=== PATIENT | male | born 1965 | race Caucasian/White ===

== ENCOUNTER 2020-11-19 22:13 | Emergency (ER) | payer MEDICARE, OTHER ==
[~2020-11-19] VITALS: Ht 177.8 cm; Wt 68.0 kg
[2020-11-19 22:41] LABS: BASOPHILS % (AUTO) 0.3 % (0.0-2.0); EOSINOPHILS % (AUTO) 1.2 % (0.0-6.0); HEMATOCRIT 38 % (39-51); HEMOGLOBIN 12.9 g/dL (13.5-17.5); LYMPHOCYTES # (AUTO) 2.2 /CMM (0.8-4.8); LYMPHOCYTES % (AUTO) 32.2 % (20.0-44.0); MEAN CORPUSCULAR HGB CONC 34 g/dl (31.0-36.0); MEAN CORPUSCULAR VOLUME 91 fL (80-96); MONOCYTES # (AUTO) 0.5 /CMM (0.1-1.30); MONOCYTES % (AUTO) 8.1 % (2.0-12.0); NEUTROPHILS # (AUTO) 3.9 /CMM (1.8-8.9); NEUTROPHILS % (AUTO) 58.2 % (43.0-81.0); PLATELET COUNT (AUTO) 295 /CMM (150-450); RED BLOOD CELL COUNT(AUTO) 4.18 MIL/uL (4.5-6.0); WHITE BLOOD COUNT (AUTO) 6.7 K/uL (4.3-11.0)
[2020-11-19 22:49] LABS: CALCIUM, SERUM 8.8 mg/dL (8.5-10.1); CREATININE 0.9 mg/dL (0.6-1.3); POTASSIUM 3.7 mmol/L (3.5-5.1)
[2020-11-19 22:55] LABS: ALBUMIN 3.7 g/dL (3.4-5.0); BILIRUBIN,DIRECT 0.1 mg/dL (0.0-0.2); BILIRUBIN,TOTAL 0.5 mg/dL (0.2-1.0); TOTAL PROTEIN, SERUM 7.4 g/dL (6.4-8.2)
--- NOTE | 2020-11-19 23:43 | NUR ---
urine collected and sent to lab
[2020-11-19 23:58] LABS: BILIRUBIN,URINE Negative (NEGATIVE); COLOR,URINE YELLOW (YELLOW); LEUKOCYTE ESTERASE ,URINE Negative (NEGATIVE); NITRITE, URINE Negative (NEGATIVE); PROTEIN,URINE Negative (NEGATIVE); UGLUCOSE Negative (NEGATIVE); UROBILINOGEN,URINE 0.2 EU/dL (0.2)
--- NOTE | 2020-11-20 00:09 | NUR ---
[facility] ETA 45 MINUTES
[2020-11-20 00:29] LABS: WBC,URINE 0-2 /HPF (0-3)
[2020-11-20 00:30] LABS: BACTERIA,URINE None seen /HPF (None Seen); SQUAMOUS EPITHELIAL CELL,UR Moderate /HPF (None Seen)
--- NOTE | 2020-11-20 01:05 | NUR ---
REPORT GIVEN TO MOMO GAGNON AT [facility]
--- NOTE | 2020-11-20 01:07 | NUR ---
[facility] IN FACILITY, REPORT GIVEN, PT TO BE TRANSPORTED BACK TO [facility]. PT VSS. NOT ACUTE DISTRESS, -SOB.
[2020-11-20] MEDS ORDERED: ACETAMINOPHEN ES 500 MG TABLET ONE (01:16)
[2020-11-20] MEDS ORDERED: ACETAMINOPHEN ES 500 MG TABLET PO ONE (01:30)
[2020-11-20 01:59] VITALS: BP 134/70
== END 2020-11-20 01:30 ==
LOC: ER 22:16
DX: G40.909 Epilepsy, unspecified, not intractable, without status epilepticus (principal); I10 Essential (primary) hypertension; J44.9 Chronic obstructive pulmonary disease, unspecified; F41.9 Anxiety disorder, unspecified; F25.9 Schizoaffective disorder, unspecified; Z95.818 Presence of other cardiac implants and grafts
CPT/HCPCS: 36415; 70450-TC; 71045-TC; 80048-TC; 80076-TC; 81001; 82962-TC; 85025-TC

== ENCOUNTER 2021-05-06 17:15 | Inpatient (IN) | payer MEDICARE, OTHER ==
[~2021-05-06] VITALS: Ht 167.6 cm; Wt 52.6 kg
[2021-05-06 18:07] LABS: BASOPHILS % (AUTO) 0.3 % (0.0-2.0); EOSINOPHILS % (AUTO) 1.8 % (0.0-6.0); HEMATOCRIT 34 % (39-51); HEMOGLOBIN 11.1 g/dL (13.5-17.5); LYMPHOCYTES # (AUTO) 2.1 K/uL (0.8-4.8); LYMPHOCYTES % (AUTO) 49.1 % (20.0-44.0); MEAN CORPUSCULAR HGB CONC 33 g/dl (31.0-36.0); MEAN CORPUSCULAR VOLUME 91 fL (80-96); MONOCYTES # (AUTO) 0.3 K/uL (0.1-1.30); MONOCYTES % (AUTO) 7.6 % (2.0-12.0); NEUTROPHILS # (AUTO) 1.7 K/uL (1.8-8.9); NEUTROPHILS % (AUTO) 41.2 % (43.0-81.0); PLATELET COUNT (AUTO) 342 K/uL (150-450); RED BLOOD CELL COUNT(AUTO) 3.72 MIL/uL (4.5-6.0); WHITE BLOOD COUNT (AUTO) 4.2 K/uL (4.3-11.0)
[2021-05-06 18:15] LABS: CALCIUM, SERUM 8.7 mg/dL (8.5-10.1); CREATININE 0.7 mg/dL (0.6-1.3); POTASSIUM 4.4 mmol/L (3.5-5.1)
--- NOTE | 2021-05-06 18:15 | NUR ---
COVID SPECIMEN COLLECTED AND SENT TO THE LAB
[2021-05-06 18:21] LABS: BILIRUBIN,TOTAL 0.1 mg/dL (0.2-1.0); TOTAL PROTEIN, SERUM 6.7 g/dL (6.4-8.2)
[2021-05-06] MEDS ORDERED: MAGNESIUM HYDROXIDE 30 ML UDC PO PRN (18:30)
[2021-05-06] MEDS ORDERED: Z GUARD REMEDY 2 OZ OINT TP PRN (18:30)
[2021-05-06] MEDS ORDERED: ONDANSETRON HCL/PF 4 MG/2 ML VIAL IVP PRN (18:30)
[2021-05-06] MEDS ORDERED: ZOLPIDEM TARTRATE 5 MG TABLET PO PRN (18:30)
[2021-05-06] MEDS ORDERED: MAG HYDROX/AL HYDROX/SIMETH 30 ML UDC PO PRN (18:30)
--- NOTE | 2021-05-06 19:12 | NUR ---
COVID PCR DONE AND SENT
--- NOTE | 2021-05-06 19:16 | NUR ---
PCR SPECIMEN COLLECTED AND SENT TO THE LAB
[2021-05-06 20:14] LABS: BILIRUBIN,URINE Negative (NEGATIVE); COLOR,URINE YELLOW (YELLOW); LEUKOCYTE ESTERASE ,URINE Small (NEGATIVE); NITRITE, URINE Negative (NEGATIVE); PROTEIN,URINE Negative (NEGATIVE); UGLUCOSE Negative (NEGATIVE); UROBILINOGEN,URINE 0.2 EU/dL (0.2)
[2021-05-06 20:23] LABS: BACTERIA,URINE 1+ /HPF (None Seen); SQUAMOUS EPITHELIAL CELL,UR Few /HPF (None Seen)
--- NOTE | 2021-05-06 20:43 | NUR ---
REPORT GIVEN TO RN
--- NOTE | 2021-05-06 21:21 | NUR ---
PT TRANSPORTED TO BILL WITHOUT INCIDENT.
[2021-05-06] MEDS: IV D5/0.45 NACL 1,000 ML IV PRN (21:31)
--- NOTE | 2021-05-06 21:47 | NUR ---
RN Notes called lab to confirm that they have the specimen for covid PCR c/o [place]
[2021-05-06 22:00] VITALS: BP 125/69
--- NOTE | 2021-05-07 02:45 | NUR ---
RN notes Admitted a 55 year old male from ER via stetcher accompanied by 1 staff with diagnosis of failure to thrive and with history of seizure, HTN, anxiety, schizoaffective disorder, spinal stenosis. No distress noted. Breathing even and unlabored. On room air well tolerated. Alert and resposive with poor concentration. Able to communicate needs. Noted with sacral wound. Cleanse with NS and covered with dry dressing. NPO. Vital signs wnl. Kept clean and dry. Will endorse to next shift for continuity of care.
[2021-05-07 04:00] VITALS: BP 118/67
[2021-05-07 06:38] LABS: BASOPHILS % (AUTO) 0.4 % (0.0-2.0); EOSINOPHILS % (AUTO) 1.3 % (0.0-6.0); HEMATOCRIT 34 % (39-51); HEMOGLOBIN 11.5 g/dL (13.5-17.5); LYMPHOCYTES # (AUTO) 2.4 K/uL (0.8-4.8); LYMPHOCYTES % (AUTO) 41.4 % (20.0-44.0); MEAN CORPUSCULAR HGB CONC 34 g/dl (31.0-36.0); MEAN CORPUSCULAR VOLUME 90 fL (80-96); MONOCYTES # (AUTO) 0.3 K/uL (0.1-1.30); MONOCYTES % (AUTO) 5.4 % (2.0-12.0); NEUTROPHILS % (AUTO) 51.5 % (43.0-81.0); PLATELET COUNT (AUTO) 387 K/uL (150-450); RED BLOOD CELL COUNT(AUTO) 3.81 MIL/uL (4.5-6.0); WHITE BLOOD COUNT (AUTO) 5.7 K/uL (4.3-11.0)
[2021-05-07 07:22] LABS: ALBUMIN 3.2 g/dL (3.4-5.0); BILIRUBIN,TOTAL 0.3 mg/dL (0.2-1.0); CALCIUM, SERUM 8.7 mg/dL (8.5-10.1); CREATININE 0.7 mg/dL (0.6-1.3); MAGNESIUM 1.9 mg/dL (1.8-2.4); PHOSPHORUS 3.7 mg/dL (2.5-4.9); POTASSIUM 3.8 mmol/L (3.5-5.1); TOTAL PROTEIN, SERUM 7.1 g/dL (6.4-8.2)
[2021-05-07 08:00] VITALS: BP 129/84
[2021-05-07] MEDS: ENSURE ENLIVE CHOC 237 ML CAN PO SCH ×2 (08:00→17:28)
--- NOTE | 2021-05-07 08:00 | NUR ---
RN MORNING NOTE PT RECEIVED SITTING UP IN BED WITH HOB HIGH FOWLERS. PT IS ON RA SPO2 98% WITH NO SIGNS OF LABORED BREATHING OR RESPIRATORY DISTRESS ETC. PT IS A/OX3. PT IS NON AMBULATORY. LAC 20 IS PATENT AND INTACT WITH NO SIGNS OF INFILTRATION. BED IS LOCKED IN THE LOWEST POSITION, 3 GUARD RAILS RAISED, CALL VARGHESE WITHIN REACH, AND ALL HOSPITAL SAFETY PRECAUTIONS ARE IN PLACE. WILL CONTINUE TO MONITOR THROUGHOUT MY SHIFT.
[2021-05-07] MEDS: IV D5/0.45 NACL 1,000 ML IV PRN (08:43)
[2021-05-07] MEDS ORDERED: ACET-73 PO (09:10)
--- NOTE | 2021-05-07 09:30 | NUR ---
RN NOTES NOTIFIED SAM AVENDANO SUPER[employer]OR [employer] FOR MED RECONCILIATION
[2021-05-07] MEDS ORDERED: OLAN15TA3 PO (09:35)
[2021-05-07] MEDS ORDERED: CHOL400T11 PO (09:35)
[2021-05-07] MEDS ORDERED: GABA-532 PO (09:35)
[2021-05-07] MEDS ORDERED: DOCU100C36 PO (09:35)
[2021-05-07] MEDS ORDERED: IBUP-1953 PO (09:35)
[2021-05-07] MEDS ORDERED: ATOR40TA PO (09:35)
[2021-05-07] MEDS ORDERED: ASPI-1420 PO (09:35)
[2021-05-07] MEDS ORDERED: TRAZ-182 PO (09:35)
[2021-05-07] MEDS ORDERED: LEVE500T9 PO (09:35)
[2021-05-07] MEDS ORDERED: BENA5TAB5 PO (09:35)
--- NOTE | 2021-05-07 10:45 | NUR ---
RN NOTES PER TRISHA VERDUGO TO PUT PATIENT ON PUREED DIET WITH NECTAR THICKENED LIQUID
[2021-05-07 16:00] VITALS: BP_SYST 108; BP_SYST 147; BP_DIAS 60; BP_DIAS 99
[2021-05-07] MEDS ORDERED: ACETAMINOPHEN ES 500 MG TABLET PO PRN (16:00)
[2021-05-07] MEDS: BACLOFEN (10 MG) 10 MG TABLET PO SCH (16:30)
[2021-05-07] MEDS: OLANZAPINE 5 MG TABLET PO SCH (16:30)
[2021-05-07] MEDS: GABAPENTIN 100 MG CAPSULE PO SCH (16:30)
[2021-05-07] MEDS: TRAZODONE 50 MG TABLET PO SCH (17:56)
[2021-05-07] MEDS: ATORVASTATIN 40 MG TABLET PO SCH (17:56)
--- NOTE | 2021-05-07 18:31 | NUR ---
RN CLOSING NOTE PT IS LYING IN BED RESTING COMFORTABLY WITH HOB AT 30 DEGREES. PT IS ON RA SPO2 98% WITH NO SIGNS OF LABORED BREATHING OR RESPIRATORY DISTRESS ETC. PT IS A/OX3. PT IS NON AMBULATORY. LAC 20 IS PATENT AND INTACT WITH NO SIGNS OF INFILTRATION. PT PLACED ON PUREE DIET WITH THICKENER. POSSIBLE GI CONSULTATION 05/[address] PACK. SWALLOW EVAL 05/08. BED IS LOCKED IN THE LOWEST POSITION, 3 GUARD RAILS RAISED, CALL VARGHESE WITHIN REACH, AND ALL HOSPITAL SAFETY PRECAUTIONS ARE IN PLACE. ALL DUE MEDICATIONS GIVEN AND PATIENT REMAINED STABLE THROUGHOUT SHIFT AND ALL NEEDS WERE MET. WILL ENDORSE TO MARKET NEWS REPORTER NURSE FOR EMIL.
--- NOTE | 2021-05-07 19:00 | NUR ---
MS RN OPENING NOTE RECEIVED PT IN BED, RESTING. A/O X3. PT IS ON ROOM AIR, NO SOB OR RESPIRATORY DISTRESS NOTED, NO C/O PAIN. RESPIRATIONS EVEN AND UNLABORED, IV ACCESS NOTED IN LEFT AC G#20, INTACT, PATENT AND FLUSHINFG WELL. FALL AND SAFETY MEASURES IN PLACE AND MAINTAINED AT ALL TIMES. BED ALARM ON, BED IN LOW AND LOCKED POSITION, HOB ELEVATED TO SEMI FOWLERS POSITION, CALL LIGHT AND TABLE WITHIN REACH, SIDE RAILS UP X2. WILL CONTINUE TO MONITOR.
[2021-05-07 20:00] VITALS: BP 128/85
[2021-05-07] MEDS: LEVETIRACETAM (250 MG) 250 MG TABLET PO SCH (22:44)
[2021-05-08 04:00] VITALS: BP 119/53
[2021-05-08] MEDS: ACETAMINOPHEN 325 MG TABLET PO PRN ×2 (06:29→08:28)
--- NOTE | 2021-05-08 06:30 | NUR ---
RN CLOSING NOTE PT REMAINED STABLE THROUGHOUT SHIFT. WILL ENDORSE TO ONCOMING RN.
--- NOTE | 2021-05-08 07:31 | NUR ---
RN OPENING NOTES Patient seen comfortably lying in bed, no SOB, no apparent distress noted, respirations even and unlabored, denies any pain or discomfort at this time. Call light left within reach, safety precautions in place, brakes locked, side rails up X 2, will monitor closely for any changes.
[2021-05-08 08:00] VITALS: BP 92/66
[2021-05-08] MEDS: ENSURE ENLIVE CHOC 237 ML CAN PO SCH ×2 (08:27→17:09)
[2021-05-08] MEDS: GABAPENTIN 100 MG CAPSULE PO SCH ×2 (08:28→17:08)
[2021-05-08] MEDS: CHOLECALCIFEROL (VITAMIN D 3) 400 UNIT TABLET PO SCH (08:28)
[2021-05-08] MEDS: BACLOFEN (10 MG) 10 MG TABLET PO SCH ×2 (08:28→17:09)
[2021-05-08] MEDS: DOCUSATE SODIUM 250 MG CAPSULE PO SCH (08:28)
[2021-05-08] MEDS: OLANZAPINE 5 MG TABLET PO SCH (08:28)
[2021-05-08] MEDS: BENAZEPRIL HCL 5 MG TABLET PO SCH (08:31)
[2021-05-08] MEDS: ASPIRIN EC 81 MG TABLET.DR PO SCH (08:31)
[2021-05-08] MEDS: IV D5/0.45 NACL 1,000 ML IV PRN (15:44)
[2021-05-08] MEDS: TRAZODONE 50 MG TABLET PO SCH (17:08)
[2021-05-08] MEDS: ATORVASTATIN 40 MG TABLET PO SCH (17:09)
--- NOTE | 2021-05-08 18:36 | NUR ---
RN CLOSING NOTES Patient lying in bed, AO X 2, with episodes of forgetfulness and confusion, reorientation provided as needed, respirations even and unlabored, no SOB, remained afebrile, no apparent distress noted, denies any pain or discomfort. All medications given per MD order, tolerating well. All needs anticipated, kept clean and dry, aspiration and seizure precautions observed, frequent visual checks rendered, frequent repositioning done, call light left within reach, safety precautions in place, brakes locked, side rails up X 2, will endorse to next shift for continuity of care.
--- NOTE | 2021-05-08 19:48 | NUR ---
MS RN NOTES Patient lying in bed, AO X 2, with episodes of forgetfulness and confusion, reorientation provided as needed, respirations even and unlabored, no SOB, no apparent distress noted, denies any pain or discomfort. All needs anticipated, kept clean and dry, aspiration and seizure precautions observed, frequent visual checks , call light left within reach, safety precautions in place, brakes locked, side rails up X 2, will continue to monitor.
[2021-05-08] MEDS: LEVETIRACETAM (250 MG) 250 MG TABLET PO SCH (21:26)
[2021-05-08 22:45] VITALS: BP 103/60
[2021-05-09] MEDS: IV D5/0.45 NACL 1,000 ML IV PRN (05:45)
--- NOTE | 2021-05-09 06:33 | NUR ---
RN NOTES Patient lying in bed, AO X 2, with episodes of forgetfulness and confusion, reorientation provided as needed, respirations even and unlabored, no SOB, no apparent distress noted, denies any pain or discomfort. All needs anticipated, kept clean and dry, aspiration and seizure precautions observed, frequent visual checks , call light left within reach, safety precautions in place, brakes locked, side rails up X 2, all due meds given and tolerated well. all needs anticipated and provided for. will endorse care to dayshift nurse.
[2021-05-09] MEDS: ENSURE ENLIVE CHOC 237 ML CAN PO SCH (08:00)
[2021-05-09] MEDS: DOCUSATE SODIUM 250 MG CAPSULE PO SCH (09:38)
[2021-05-09] MEDS: OLANZAPINE 5 MG TABLET PO SCH (09:39)
[2021-05-09] MEDS: CHOLECALCIFEROL (VITAMIN D 3) 400 UNIT TABLET PO SCH (09:39)
[2021-05-09] MEDS: GABAPENTIN 100 MG CAPSULE PO SCH (09:39)
[2021-05-09] MEDS: BACLOFEN (10 MG) 10 MG TABLET PO SCH (09:39)
[2021-05-09] MEDS: ASPIRIN EC 81 MG TABLET.DR PO SCH (09:39)
[2021-05-09 09:41] VITALS: BP 130/76
[2021-05-09] MEDS: BENAZEPRIL HCL 5 MG TABLET PO SCH (09:41)
--- NOTE | 2021-05-09 09:55 | NUR ---
WOUND CARE CONSULT: PT PRESENTS WITH STAGE 3 SACRAL ULCER, PRESENT ON ADMISSION. PT IS INCONTINENT OF URINE. RECOMMEND SURGICAL CONSULT. DR LAMAR NOTIFIED. RECOMMENDATIONS MADE FOR SKIN PROTECTION. DISCUSSED WITH NURSING STAFF. SHADE ISOFLEX LOW AIRLOSS BED TO BE PLACED WHEN AVAILABLE. IN AGREEMENT WITH PLAN OF CARE. Addendum: 05/09/21 at 0956 by KURT SAGASTUME WNDNU Amended: Links added.
--- NOTE | 2021-05-09 20:05 | NUR ---
PATIENT D/C TO SNF, SAFE TRANSFER FROM BED TO GURNEY TO TWO HELPER COORDINATOR, REPORT GIVEN AND ALL INFORMATION PRINTED OUT AND GIVEN TO HELPER COORDINATOR, IV D/C AND SAFE TRANSFER TO VEHICLE. PATIENT CHANGED AND CLEANED, AND REQUESTED TO TAKE HIS ENSURE ALLOWED TO DRINK ENSURE WHILE BEING TRANSFERRED OUT ON GURNEY TO SNF, SAFE TRANSFER OUT TO VEHICLE NOTED. IV SITE D/C.
== END 2021-05-09 17:58 | DRG 640 ==
LOC: ER 17:22 → TELE1 20:14 → MEDSG1 20:51
PROVIDERS: ADMIT Nurse Practitioner Acute Care; ATTEND Nurse Practitioner Acute Care
DX: R62.7 Adult failure to thrive (principal); L89.153 Pressure ulcer of sacral region, stage 3; G93.41 Metabolic encephalopathy; D68.59 Other primary thrombophilia; Z95.1 Presence of aortocoronary bypass graft; I25.10 Atherosclerotic heart disease of native coronary artery without angina pectoris; G40.909 Epilepsy, unspecified, not intractable, without status epilepticus; J44.9 Chronic obstructive pulmonary disease, unspecified; E78.5 Hyperlipidemia, unspecified; M48.00 Spinal stenosis, site unspecified; I10 Essential (primary) hypertension; Z74.01 Bed confinement status; F03.90 Unspecified dementia, unspecified severity, without behavioral disturbance, psychotic disturbance, mood disturbance, and anxiety; F29 Unspecified psychosis not due to a substance or known physiological condition; Z20.822 Contact with and (suspected) exposure to COVID-19
CPT/HCPCS: 36415; 71045-TC; 80053-TC; 81001; 83735-TC; 84100-TC; 85025-TC; 85610-TC; 87081-TC; 87086-TC; 87186-TC; 92526; 92611-TC; A4217; A6253; A6403; C9803; G0378; J3490; U0003

== ENCOUNTER 2021-06-04 18:25 | Inpatient (IN) | payer MEDICARE, OTHER ==
[~2021-06-04] VITALS: Ht 162.6 cm; Wt 51.5 kg
[~2021-06-04 18:25] MED LIST: ACET-73 PO; ASPI-1420 PO; ATOR40TA PO; BENA5TAB5 PO; CHOL400T11 PO; DOCU100C36 PO; GABA-532 PO; IBUP-1953 PO; LEVE500T9 PO; OLAN15TA3 PO; TRAZ-182 PO
[2021-06-04] MEDS ORDERED: ONDANSETRON HCL/PF 4 MG/2 ML VIAL ONE (18:59)
[2021-06-04] MEDS ORDERED: MORPHINE SULFATE INJ 2 MG/ML DISP.SYRIN ONE (18:59)
[2021-06-04] MEDS ORDERED: MORPHINE SULFATE INJ 2 MG/ML DISP.SYRIN IV ONE (19:00)
[2021-06-04] MEDS ORDERED: VANCOMYCIN 1 GM in IV D5W 250 ML IV ONE (19:00)
[2021-06-04] MEDS ORDERED: CEFEPIME 1 GM in IV D5W 50 ML IV ONE (19:00)
[2021-06-04] MEDS ORDERED: IV NS 0.9% 1,000 ML BAG IV ONE (19:00)
[2021-06-04] MEDS ORDERED: ONDANSETRON HCL/PF 4 MG/2 ML VIAL IVP ONE (19:00)
[2021-06-04] MEDS ORDERED: CT SWABBABLE VALVE TRANS SET 1 EA INFUS.SET MC ONE (19:02)
[2021-06-04] MEDS ORDERED: IOHEXOL-300 100 ML VIAL IV ONE (19:02)
[2021-06-04] MEDS ORDERED: IV NS 0.9% 250 ML IV ONE (19:02)
--- NOTE | 2021-06-04 19:07 | NUR ---
urine collected and sent to lab.
--- NOTE | 2021-06-04 19:07 | NUR ---
BIB [facility] SN[facility] FOR NOTED R SIDED NECK/FACIAL SWELLING AND REDNESS X 3 DAYS. ON ROOM AIR, BREATHING EVENLY AND UNLABORED. KEPT COMFORTABLE, WILL CONTINUE TO MONITOR ACCORDINGLY.
--- NOTE | 2021-06-04 19:09 | NUR ---
report given to gayathri antunez
[2021-06-04 19:14] LABS: HEMOGLOBIN 10.2 g/dL (13.5-17.5)
[2021-06-04 19:15] LABS: CALCIUM, SERUM 8.5 mg/dL (8.5-10.1); CARBON DIOXIDE 29 mmol/L (21-32); CHLORIDE 98 mmol/L (98-107); CREATININE 0.7 mg/dL (0.6-1.3); GLUCOSE 110 mg/dL (74-106); SODIUM SERUM 133 mmol/L (136-145); UREA NITROGEN, BLOOD 10 mg/dL (7-18)
[2021-06-04] MEDS ORDERED: MAGN400O6 PO (19:16)
[2021-06-04] MEDS ORDERED: BACL10TA PO (19:16)
[2021-06-04] MEDS ORDERED: MAG30ORA PO (19:16)
[2021-06-04] MEDS ORDERED: HONE15GE TP (19:17)
[2021-06-04 19:21] LABS: ALANINE AMINOTRANSFERASE 37 U/L (12-78); ALBUMIN 2.5 g/dL (3.4-5.0); ALKALINE PHOSPHATASE 152 U/L (46-116); ASPARTATE AMINOTRANSFERASE 20 U/L (15-37); BILIRUBIN,DIRECT 0.1 mg/dL (0.0-0.2); BILIRUBIN,TOTAL 0.3 mg/dL (0.2-1.0); TOTAL PROTEIN, SERUM 7.5 g/dL (6.4-8.2)
[2021-06-04 19:25] LABS: BASOPHILS # (AUTO) 0.2 K/uL (0.0-0.2); BASOPHILS % (AUTO) 1.6 % (0.0-2.0); EOSINOPHILS % (AUTO) 0.8 % (0.0-6.0); HEMATOCRIT 31 % (39-51); LYMPHOCYTES # (AUTO) 1.3 K/uL (0.8-4.8); LYMPHOCYTES % (AUTO) 10.3 % (20.0-44.0); MEAN CORPUSCULAR HGB CONC 33 g/dl (31.0-36.0); MEAN CORPUSCULAR VOLUME 89 fL (80-96); MONOCYTES # (AUTO) 1.1 K/uL (0.1-1.30); NEUTROPHILS # (AUTO) 9.8 K/uL (1.8-8.9); NEUTROPHILS % (AUTO) 78.3 % (43.0-81.0); PLATELET COUNT (AUTO) 315 K/uL (150-450); RED BLOOD CELL COUNT(AUTO) 3.51 MIL/uL (4.5-6.0); WHITE BLOOD COUNT (AUTO) 12.5 K/uL (4.3-11.0)
--- NOTE | 2021-06-04 19:30 | NUR ---
PATIENT OUT TO CT
--- NOTE | 2021-06-04 19:51 | NUR ---
PT BACK FROM CT
--- NOTE | 2021-06-04 20:26 | NUR ---
EPIC COBOL APPLICATION DEVELOPER PAGED
--- NOTE | 2021-06-04 20:30 | NUR ---
CALLED NURSING SUP FOR BED
[2021-06-04 20:38] LABS: LYMPHOCYTES % (MANUAL) 23 % (16-48); MONOCYTES % (MANUAL) 8 % (0-11.0); NEUTROPHILS % (MANUAL) 69 (42-76)
--- NOTE | 2021-06-04 21:52 | NUR ---
BED 120
[2021-06-04] MEDS ORDERED: ACETAMINOPHEN 325 MG TABLET PO PRN (22:00)
[2021-06-04] MEDS ORDERED: ONDANSETRON HCL/PF 4 MG/2 ML VIAL IVP PRN (22:00)
[2021-06-04] MEDS ORDERED: HYDROCODONE/APAP 5/325MG TABLET PO PRN (22:00)
[2021-06-04] MEDS ORDERED: MORPHINE SULFATE INJ 2 MG/ML DISP.SYRIN IV PRN (22:00)
[2021-06-04] MEDS ORDERED: MAG HYDROX/AL HYDROX/SIMETH 30 ML UDC PO PRN (22:00)
[2021-06-04] MEDS ORDERED: MAGNESIUM HYDROXIDE 30 ML UDC PO PRN (22:00)
[2021-06-04] MEDS ORDERED: Z GUARD REMEDY 2 OZ OINT TP PRN (22:00)
--- NOTE | 2021-06-04 22:28 | NUR ---
REPOT GIVEN TO SANJU ARGUELLES FOR EMIL
--- NOTE | 2021-06-04 22:39 | NUR ---
PT TRANSPORTED TO UNIT IN [facility] TO UNIT ON [facility] EMT AT BEDSIDE ON STABLE CONDITION. NAD NOTED DURING TRANSPORT
--- NOTE | 2021-06-04 22:40 | NUR ---
RN NOTES ADMITTED A 55 Y/O MALE PATIENT FROM ER VIA GURNEY. PATIENT A/O X3 ABLE TO MAKE NEEDS KNOWN. TRANSFER TO BED SAFELY. WITH HELMET IN PLACE. WITH IV ACCESS ON R AC G#18 PATENT FLUSHES WELL. VITAL SIGNS TAKEN AND RECORDED. SKIN ASSESSMENT CHECK THOROUGHLY, WITH R FACE AND R JAW SWELLING. BELONGINGS RECORDED. SAFETY MEASURES IN PLACE, HOB ELEVATED, BED ON LOWEST POSITION AND LOCKED. CALL LIGHT WITHIN REACH. SEIZURE PRECAUTION IN PADDED SIDE RAILS IN PLACE WILL MONITOR PATIENT CLOSELY
[2021-06-04 22:47] VITALS: BP 111/65
[2021-06-04] MEDS: ENOXAPARIN SODIUM 40 MG/0.4 ML DISP.SYRIN SQ SCH (23:06)
[2021-06-04] MEDS: IV NS 0.9% 1,000 ML IV PRN (23:07)
[2021-06-05] MEDS ORDERED: CEFEPIME 1 GM VIAL ONE (00:53)
[2021-06-05] MEDS ORDERED: CEFEPIME 2 GM in IV D5W 100 ML IV ONE (01:00)
--- NOTE | 2021-06-05 06:37 | NUR ---
RN NOTES PATIENT REMAINS STABLE THE WHOLE SHIFT, NO SIGNIFICANT CHANGES IN HEALTH CONDITION. PATIENT A/O X3. ALL DUE MEDS GIVEN ORDERED.NO SOB NO DISTRESS NOTED THIS SHIFT. ALL SAFETY MEASURES IN PLACE HOB ELEVATED, CALL LIGHT WITHIN REACH.SEIZURE PREC, PADDED SIDE RAILS IN PLACE. NO EPISODE OF SEIZURE DURING THIS SHIFT FREQUENT VISUAL MONITORING RENDERED. ENDORSED
[2021-06-05] MEDS ORDERED: VANCOMYCIN 1 GM in IV D5W 250ml IV ONE (07:00)
[2021-06-05 07:22] LABS: BASOPHILS % (AUTO) 0.1 % (0.0-2.0); EOSINOPHILS % (AUTO) 0.4 % (0.0-6.0); HEMATOCRIT 27 % (39-51); HEMOGLOBIN 9.2 g/dL (13.5-17.5); LYMPHOCYTES # (AUTO) 2.1 K/uL (0.8-4.8); LYMPHOCYTES % (AUTO) 21.2 % (20.0-44.0); MEAN CORPUSCULAR HGB CONC 34 g/dl (31.0-36.0); MEAN CORPUSCULAR VOLUME 89 fL (80-96); MONOCYTES # (AUTO) 0.8 K/uL (0.1-1.30); MONOCYTES % (AUTO) 8.1 % (2.0-12.0); NEUTROPHILS # (AUTO) 6.8 K/uL (1.8-8.9); NEUTROPHILS % (AUTO) 70.2 % (43.0-81.0); PLATELET COUNT (AUTO) 295 K/uL (150-450); RED BLOOD CELL COUNT(AUTO) 3.03 MIL/uL (4.5-6.0); WHITE BLOOD COUNT (AUTO) 9.7 K/uL (4.3-11.0)
--- NOTE | 2021-06-05 07:30 | NUR ---
RN MORNING NOTE RECEIVED PT IN BED IN HIGH FOWLERS POSITION. PT IS ON RA SAT 98% TOLERATING WELL WITH NO SIGNS OF LABORED BREATHING OR DISTRESS. PT IS A/OX3 WITH POOR CONCENTRATION AND MEDSURG. PT HAS DIAPER AND IS BR. PT IS ON SOFT DIET AND ASPIRATION PRONE. PT HAS 4 AC 18 G WITH NS INFUSING AT 75ML/HR. BED IS LOCKED IN LOWEST POSITION, CALL VARGHESE IS WITHIN REACH, BED ALARM IS ON, HOSPITAL SAFETY PRECAUTIONS IN PLACE. WILL CONTINUE TO MONITOR THIS SHIFT.
[2021-06-05 07:38] LABS: ALBUMIN 2.2 g/dL (3.4-5.0); BILIRUBIN,TOTAL 0.3 mg/dL (0.2-1.0); CALCIUM, SERUM 9.1 mg/dL (8.5-10.1); CREATININE 0.7 mg/dL (0.6-1.3); MAGNESIUM 1.8 mg/dL (1.8-2.4); PHOSPHORUS 3.9 mg/dL (2.5-4.9); POTASSIUM 4.1 mmol/L (3.5-5.1); TOTAL PROTEIN, SERUM 6.8 g/dL (6.4-8.2)
[2021-06-05] MEDS: VANCOMYCIN 1 GM in IV D5W 250 ML IV SCH ×2 (08:23→16:31)
[2021-06-05] MEDS: PANTOPRAZOLE 40 MG TABLET.DR PO SCH (08:23)
[2021-06-05] MEDS: IV NS 0.9% 1,000 ML IV PRN (13:51)
[2021-06-05] MEDS: CEFEPIME 2 GM in IV D5W 100 ML IV SCH (13:55)
--- NOTE | 2021-06-05 19:00 | NUR ---
RN OPENING NOTES PATIENT WAS ENDORSED BY DAY SHIFT NURSE UNDER STABLE CONDITIONS. PATIENT FOUND SITTING UP IN BED IN HIGH FOWLERS POSITION. PT IS ON RA SAT 98% TOLERATING WELL WITH NO SIGNS OF LABORED BREATHING OR DISTRESS. PT IS A/OX3 WITH POOR CONCENTRATION. PT HAS DIAPER AND IS BR. PT IS ON SOFT DIET AND ASPIRATION PRONE. PT HAS R AC 18 G WITH NS INFUSING AT 75ML/HR. BED IS LOCKED IN LOWEST POSITION, CALL VARGHESE IS WITHIN REACH, BED ALARM IS ON, HOSPITAL SAFETY PRECAUTIONS IN PLACE. WILL CONTINUE TO MONITOR FOR ANY CHANGES IN PATIENT STATUS.
--- NOTE | 2021-06-05 19:02 | NUR ---
RN CLOSING NOTE PT IS SITTING UP IN BED IN HIGH FOWLERS POSITION. PT IS ON RA SAT 98% TOLERATING WELL WITH NO SIGNS OF LABORED BREATHING OR DISTRESS. PT IS A/OX3 WITH POOR CONCENTRATION AND MEDSURG. PT HAS DIAPER AND IS BR. PT IS ON SOFT DIET AND ASPIRATION PRONE. PT HAS 4 AC 18 G WITH NS INFUSING AT 75ML/HR. BED IS LOCKED IN LOWEST POSITION, CALL VARGHESE IS WITHIN REACH, BED ALARM IS ON, HOSPITAL SAFETY PRECAUTIONS IN PLACE. WILL ENDORSE TO GRANITE INSTALLER NURSE FOR EMIL.
[2021-06-05 20:00] VITALS: BP 106/67
[2021-06-05] MEDS: ENOXAPARIN SODIUM 40 MG/0.4 ML DISP.SYRIN SQ SCH (21:40)
--- NOTE | 2021-06-06 00:35 | NUR ---
RN NOTE-JOHANNA UNABLE TO GIVEN VANCO AT THIS TIME, PT VANCO TROUGH RESULT NOT BACK YET. CALLED LAB, PER ALINE, MACHINE WITH PT SPECIMEN IS DOWN, SAID TO HOLD 30 MIN AT THIS TIME Addendum: 06/06/21 at 0109 by BRIAN LEON RN PT TROUGH IS 18, RESULT BACK, WILL GIVE ORDERED
[2021-06-06] MEDS: VANCOMYCIN 1 GM in IV D5W 250 ML IV SCH ×3 (01:12→22:42)
[2021-06-06] MEDS: CEFEPIME 2 GM in IV D5W 100 ML IV SCH (02:31)
--- NOTE | 2021-06-06 07:03 | NUR ---
RN CLOSING NOTES PATIENT WILL BE ENDORSED TO DAY SHIFT NURSE UNDER STABLE CONDITIONS, NO SIGNIFICANT CHANGES DURING NIGH SHIFT, PATIENT REMAINS LAYING IN BED IN HIGH FOWLERS POSITION. PT IS ON RA SAT 100%, TOLERATING WELL WITH NO SIGNS OF LABORED BREATHING OR DISTRESS. PT IS A/OX3 WITH POOR CONCENTRATION, PATIENT IS ABLE TO VERBALIZE NEEDS. PT HAS DIAPER AND IS BR. PT IS ON SOFT DIET AND ASPIRATION PRONE. PT HAS R AC 18 G WITH NS INFUSING AT 75ML/HR. BED IS LOCKED IN LOWEST POSITION, CALL VARGHESE IS WITHIN REACH, BED ALARM IS ON, HOSPITAL SAFETY PRECAUTIONS IN PLACE. WILL ENDORSE TO DAY SHIFT NURSE FOR CONTINUITY OF CARE.
[2021-06-06 07:46] LABS: BASOPHILS % (AUTO) 0.1 % (0.0-2.0); EOSINOPHILS % (AUTO) 0.7 % (0.0-6.0); HEMATOCRIT 29 % (39-51); HEMOGLOBIN 9.8 g/dL (13.5-17.5); LYMPHOCYTES # (AUTO) 1.6 K/uL (0.8-4.8); MEAN CORPUSCULAR HGB CONC 34 g/dl (31.0-36.0); MEAN CORPUSCULAR VOLUME 88 fL (80-96); MONOCYTES # (AUTO) 0.5 K/uL (0.1-1.30); MONOCYTES % (AUTO) 6.5 % (2.0-12.0); NEUTROPHILS # (AUTO) 5.6 K/uL (1.8-8.9); NEUTROPHILS % (AUTO) 71.7 % (43.0-81.0); PLATELET COUNT (AUTO) 356 K/uL (150-450); RED BLOOD CELL COUNT(AUTO) 3.24 MIL/uL (4.5-6.0); WHITE BLOOD COUNT (AUTO) 7.8 K/uL (4.3-11.0)
[2021-06-06 08:03] LABS: ALBUMIN 2.4 g/dL (3.4-5.0); BILIRUBIN,TOTAL 0.3 mg/dL (0.2-1.0); CALCIUM, SERUM 8.9 mg/dL (8.5-10.1); CREATININE 0.7 mg/dL (0.6-1.3); MAGNESIUM 1.7 mg/dL (1.8-2.4); PHOSPHORUS 4.7 mg/dL (2.5-4.9); POTASSIUM 3.3 mmol/L (3.5-5.1); TOTAL PROTEIN, SERUM 7.5 g/dL (6.4-8.2)
[2021-06-06] MEDS: PANTOPRAZOLE 40 MG TABLET.DR PO SCH ×2 (08:31→08:38)
--- NOTE | 2021-06-06 09:48 | NUR ---
WOUND CARE CONSULT: REVIEWED CHART,NURSING DOCUMENTATION AND PHOTOS WHICH INDICATE RT NECK SWELLING AND SACRAL FULL THICKNESS PRESSURE ULCER, PRESENT ON ADMISSION. DR LAMAR NOTIFIED OF SURGICAL CONSULT REQUEST. RECOMMENDATIONS MADE FOR SKIN PROTECTION. DISCUSSED WITH NURSING STAFF. PT IS ON SHADE ISOFLEX LOW AIRLOSS BED. MD IN AGREEMENT WITH PLAN OF CARE.
[2021-06-06] MEDS ORDERED: POTASSIUM CHLORIDE 20 MEQ TAB.PRT.SR PO ONE (11:00)
[2021-06-06] MEDS: Magnesium 1GM/D5W 100ML PREMIX 100 ML IV SCH ×2 (12:21→12:42)
[2021-06-06] MEDS ORDERED: Magnesium 1GM/D5W 100ML PREMIX 100 ML IV SCH (15:00)
[2021-06-06 16:00] VITALS: BP 116/69
[2021-06-06] MEDS: THERAHONEY GEL 1.5 OZ TUBE TP SCH (16:43)
[2021-06-06] MEDS: GABAPENTIN 100 MG CAPSULE PO SCH (16:46)
[2021-06-06] MEDS: BACLOFEN (10 MG) 10 MG TABLET PO SCH (16:46)
[2021-06-06] MEDS: ATORVASTATIN 40 MG TABLET PO SCH (17:58)
[2021-06-06] MEDS: PIPERACILLIN /TAZOBACTAM 3.375 G in IV D5W 50 ML IV SCH (17:58)
[2021-06-06] MEDS ORDERED: OLANZAPINE 10 MG TABLET PO SCH (22:00)
[2021-06-06] MEDS ORDERED: LEVETIRACETAM (250 MG) 250 MG TABLET PO SCH (22:00)
[2021-06-06] MEDS ORDERED: TRAZODONE 50 MG TABLET PO SCH (22:00)
[2021-06-06] MEDS: ENOXAPARIN SODIUM 40 MG/0.4 ML DISP.SYRIN SQ SCH (22:43)
[2021-06-07] MEDS: PIPERACILLIN /TAZOBACTAM 3.375 G in IV D5W 50 ML IV SCH ×2 (00:12→05:12)
[2021-06-07] MEDS: IV NS 0.9% 1,000 ML IV PRN (05:12)
--- NOTE | 2021-06-07 06:47 | NUR ---
RN CLOSING NOTE PT IS SITTING UP IN BED SEMI FOWLERS . PT IS ON RA SAT 97% TOLERATING WELL WITH NO SIGNS OF LABORED BREATHING OR DISTRESS. PT IS A/OX3 WITH POOR CONCENTRATION AND MEDSURG. PT HAS DIAPER AND IS BR. PT IS ON SOFT DIET AND ASPIRATION PRONE. PT HAS SAMM 18G MIDLINE WITH NS INFUSING AT 75ML/HR. BED IS LOCKED IN LOWEST POSITION, CALL VARGHESE IS WITHIN REACH, BED ALARM IS ON, HOSPITAL SAFETY PRECAUTIONS IN PLACE. ALL PATIENT NEEDS MET AND WILL ENDORSE TO DAY SHIFT NURSE FOR EMIL.
--- NOTE | 2021-06-07 07:30 | NUR ---
MS RN OPENING NOTE RECEIVED PT IN BED WITH EYES CLOSED, EASILY AROUSED. A/O X2. PT IS STABLE ON RA WITH NO SOB OR S/S OF RESPIRATORY DISTRESS NOTED. PT HAS NO SIGNS OF PAIN SUCH FACIAL GRIMACING AT THIS TIME. IV ACCESS IN SAMM MIDLINE #18 INFUSING NS AT 75 ML/HR, INTACT AND PATENT. SAFETY AND SEIZURE PRECAUTIONS MAINTAINED. BED IN LOWEST LOCKED POSITION, HOB ELEVATED, SIDE RAILS UP X3. BED ALARM ON. CALL LIGHT AND TABLE WITHIN REACH. WILL CONTINUE TO MONITOR.
[2021-06-07 07:52] LABS: CALCIUM, SERUM 9.1 mg/dL (8.5-10.1); CREATININE 0.8 mg/dL (0.6-1.3); MAGNESIUM 2.1 mg/dL (1.8-2.4); POTASSIUM 3.8 mmol/L (3.5-5.1)
[2021-06-07 08:00] VITALS: BP 128/80
[2021-06-07] MEDS: VANCOMYCIN 1 GM in IV D5W 250 ML IV SCH (08:11)
[2021-06-07] MEDS: BACLOFEN (10 MG) 10 MG TABLET PO SCH ×2 (08:18→16:50)
[2021-06-07] MEDS: GABAPENTIN 100 MG CAPSULE PO SCH ×2 (08:18→16:50)
[2021-06-07] MEDS: THERAHONEY GEL 1.5 OZ TUBE TP SCH (08:54)
[2021-06-07] MEDS ORDERED: DOCUSATE SODIUM 100 MG CAPSULE PO SCH (09:00)
[2021-06-07] MEDS ORDERED: CHOLECALCIFEROL (VITAMIN D 3) 400 UNIT TABLET PO SCH (09:00)
--- NOTE | 2021-06-07 12:00 | NUR ---
RN NOTE STRAIGHT CATHETER INSERTED BY SANJU DOWNING. PT TOLERATED PROCEDURE WELL. CLEAR, YELLOW URINE PRODUCED 60ML. SPECIMEN COLLECTED AND SENT TO LAB ORDERED.
[2021-06-07] MEDS ORDERED: MEROPENEM 1 G in IV NS 0.9% 100 ML IV SCH (13:00)
[2021-06-07 16:00] VITALS: BP 116/69
[2021-06-07] MEDS ORDERED: CEFE2PIG2 IV (16:02)
[2021-06-07] MEDS ORDERED: VANC1VIA34 XX (16:02)
[2021-06-07] MEDS: ATORVASTATIN 40 MG TABLET PO SCH (17:33)
[2021-06-07 17:36] LABS: BILIRUBIN,URINE NEGATIVE (NEGATIVE); COLOR,URINE YELLOW (YELLOW); LEUKOCYTE ESTERASE ,URINE LARGE (NEGATIVE); NITRITE, URINE NEGATIVE (NEGATIVE); PH,URINE 6.5 (5.0-8.0); PROTEIN,URINE NEGATIVE (NEGATIVE); UGLUCOSE NEGATIVE (NEGATIVE); UROBILINOGEN,URINE 0.2 EU/dL (0.2)
[2021-06-07 18:08] LABS: WBC,URINE 21-50 /HPF (0-3)
[2021-06-07 18:09] LABS: BACTERIA,URINE Few /HPF (None Seen); SQUAMOUS EPITHELIAL CELL,UR Few /HPF (None Seen)
--- NOTE | 2021-06-07 18:34 | NUR ---
MS RN CLOSING NOTE PT IS IN BED WITH EYES CLOSED, EASILY AROUSED. A/O X2. PT IS STABLE ON RA WITH NO SOB OR S/S OF RESPIRATORY DISTRESS NOTED. PT HAS NO SIGNS OF PAIN SUCH FACIAL GRIMACING AT THIS TIME. IV ACCESS IN SAMM MIDLINE #18, INTACT AND PATENT. ALL NEEDS HAVE BEEN MET. SAFETY AND SEIZURE PRECAUTIONS MAINTAINED AT ALL TIMES. BED IN LOWEST LOCKED POSITION, HOB ELEVATED, SIDE RAILS UP X3. BED ALARM ON. CALL LIGHT AND TABLE WITHIN REACH. WILL ENDORSE TO ONCOMING NURSE FOR EMIL.
--- NOTE | 2021-06-07 18:56 | NUR ---
MS TYPEWRITER REPAIRER NOTE PT DISCHARGED TO SNF AT THIS TIME. PT IS MEDICALLY STABLE AND CLEARED FOR DISCHARGE BY DR. CHIU. ALL PT CARE, NEEDS, MEDICATIONS, AND TREATMENT ADMINISTERED PER ORDER. DISCHARGE INSTRUCTIONS PROVIDED. PT KEPT CLEAN AND DRY. IV ACCESS KEPT INTACT DUE TO CONTINUATION OF IV ATB FOR 7 MORE DAYS PER ORDER. ID BAND REMOVED. PT TRANSPORTED TO [facility] VIA RNEY ACCOMPANIED BY 2 EMT'S. CHARGE NURSE MICHEL AND DR. CHIU AWARE.
== END 2021-06-07 19:00 | DRG 602 ==
LOC: ER 18:39 → MEDSG1 22:02
PROVIDERS: ADMIT Hospitalist; ATTEND Student in an Organized Health Care Education/Training Program
PROC: 05H633Z Insertion of Infusion Device into Left Subclavian Vein, Percutaneous Approach (ICD-10-PCS; principal; 2021-06-06)
PROC: B547ZZA Ultrasonography of Left Subclavian Vein, Guidance (ICD-10-PCS; 2021-06-06)
DX: L03.221 Cellulitis of neck (principal); L89.153 Pressure ulcer of sacral region, stage 3; N39.0 Urinary tract infection, site not specified; E87.1 Hypo-osmolality and hyponatremia; G93.40 Encephalopathy, unspecified; Z68.1 Body mass index [BMI] 19.9 or less, adult; E44.0 Moderate protein-calorie malnutrition; Z16.12 Extended spectrum beta lactamase (ESBL) resistance; K21.9 Gastro-esophageal reflux disease without esophagitis; J44.9 Chronic obstructive pulmonary disease, unspecified; Z95.1 Presence of aortocoronary bypass graft; I10 Essential (primary) hypertension; I25.10 Atherosclerotic heart disease of native coronary artery without angina pectoris; G40.909 Epilepsy, unspecified, not intractable, without status epilepticus; E78.5 Hyperlipidemia, unspecified; M60.88 Other myositis, other site; D64.9 Anemia, unspecified; M48.00 Spinal stenosis, site unspecified; E88.09 Other disorders of plasma-protein metabolism, not elsewhere classified; Z20.822 Contact with and (suspected) exposure to COVID-19; M60.9 Myositis, unspecified; F29 Unspecified psychosis not due to a substance or known physiological condition; D72.829 Elevated white blood cell count, unspecified; B96.20 Unspecified Escherichia coli [E. coli] as the cause of diseases classified elsewhere
CPT/HCPCS: 36410; 36415; 70491-TC; 71045-TC; 80048-TC; 80053-TC; 80076-TC; 80202-TC; 81001; 83605-TC; 83735-TC; 84100-TC; 84484-TC; 85025-TC; 85730-TC; 86803; 87040-TC; 87081-TC; 87086-TC; 87186-TC; 87806; G0378; J0692; J1650; J2185; J2270; J2405; J2543; J3370; J3475; J7030; J7050; J7060; Q9967; U0003

== ENCOUNTER 2021-07-29 13:07 | Inpatient (IN) | payer MEDICARE, OTHER ==
[~2021-07-29] VITALS: Ht 162.6 cm; Wt 50.8 kg
[~2021-07-29 13:07] MED LIST changes: +BACL10TA PO; +CEFE2PIG2 IV; +HONE15GE TP; +MAG30ORA PO; +MAGN400O6 PO; +VANC1VIA34 XX
--- NOTE | 2021-07-29 13:20 | NUR ---
BIBPA FOR G TUBE PLACEMENT, PT NOT EATING & LOSING WEIGHT PER EMS. PT A/OX2. TOLERATING R/A WELL WITH NO SOB. REDNESS NOTED TO SACRUM. SAFETY MEASURES IN PLACE. CONNECTED PT TO POX AND MONITOR
--- NOTE | 2021-07-29 13:50 | NUR ---
LAC #18G S/L; PATENT AND INTACT. BLOOD COLLECTED AND SENT TO LAB
[2021-07-29] MEDS ORDERED: ONDANSETRON HCL/PF 4 MG/2 ML VIAL IVP PRN (14:00)
[2021-07-29] MEDS ORDERED: ACETAMINOPHEN ES 500 MG TABLET PO PRN (14:00)
[2021-07-29] MEDS ORDERED: MAG HYDROX/AL HYDROX/SIMETH 30 ML UDC PO PRN ×2 (14:00)
[2021-07-29] MEDS ORDERED: MAGNESIUM HYDROXIDE 30 ML UDC PO PRN ×2 (14:00)
[2021-07-29] MEDS ORDERED: ACETAMINOPHEN 325 MG TABLET PO PRN (14:00)
[2021-07-29] MEDS ORDERED: Z GUARD REMEDY 4 OZ OINT TP PRN (14:00)
--- NOTE | 2021-07-29 14:10 | NUR ---
DR. MAYS AT PT'S BEDSIDE
--- NOTE | 2021-07-29 14:14 | NUR ---
URINE AND COVID ANTIGEN COLLECTED AND SENT TO LAB
--- NOTE | 2021-07-29 14:18 | NUR ---
DAM TENDER AT PT'S BEDSIDE
--- NOTE | 2021-07-29 14:32 | NUR ---
PT PASSED SWALLOW EVAL WITH WATER AND PUDDING; NOTIFIED DR. MAYS
--- NOTE | 2021-07-29 14:41 | NUR ---
MOVE SHEET SUBMITTED.
[2021-07-29 15:05] LABS: BASOPHILS % (AUTO) 0.6 % (0.0-2.0); EOSINOPHILS % (AUTO) 2.6 % (0.0-6.0); HEMATOCRIT 32 % (39-51); HEMOGLOBIN 10.6 g/dL (13.5-17.5); LYMPHOCYTES # (AUTO) 1.8 K/uL (0.8-4.8); MEAN CORPUSCULAR HGB CONC 33 g/dl (31.0-36.0); MEAN CORPUSCULAR VOLUME 89 fL (80-96); MONOCYTES # (AUTO) 0.5 K/uL (0.1-1.30); MONOCYTES % (AUTO) 9.7 % (2.0-12.0); NEUTROPHILS # (AUTO) 2.8 K/uL (1.8-8.9); NEUTROPHILS % (AUTO) 53.1 % (43.0-81.0); PLATELET COUNT (AUTO) 331 K/uL (150-450); RED BLOOD CELL COUNT(AUTO) 3.63 MIL/uL (4.5-6.0); WHITE BLOOD COUNT (AUTO) 5.3 K/uL (4.3-11.0)
[2021-07-29 15:43] LABS: ALBUMIN 3.3 g/dL (3.4-5.0); BILIRUBIN,DIRECT 0.1 mg/dL (0.0-0.2); BILIRUBIN,TOTAL 0.2 mg/dL (0.2-1.0); CREATININE 0.8 mg/dL (0.6-1.3); POTASSIUM 4.2 mmol/L (3.5-5.1); TOTAL PROTEIN, SERUM 8.3 g/dL (6.4-8.2)
[2021-07-29 15:51] LABS: BILIRUBIN,URINE NEGATIVE (NEGATIVE); COLOR,URINE YELLOW (YELLOW); LEUKOCYTE ESTERASE ,URINE TRACE (NEGATIVE); NITRITE, URINE NEGATIVE (NEGATIVE); PH,URINE 6.5 (5.0-8.0); PROTEIN,URINE NEGATIVE (NEGATIVE); UGLUCOSE NEGATIVE (NEGATIVE); UROBILINOGEN,URINE 0.2 EU/dL (0.2)
[2021-07-29] MEDS ORDERED: BACLOFEN (10 MG) 10 MG TABLET PO SCH (17:00)
[2021-07-29 17:17] LABS: BACTERIA,URINE Many /HPF (None Seen); RBC,URINE NONE SEEN /HPF (0-2)
[2021-07-29 17:18] LABS: SQUAMOUS EPITHELIAL CELL,UR None Seen /HPF (None Seen)
--- NOTE | 2021-07-29 21:38 | NUR ---
REPORT GIVEN TO SANJU QUINTANILLA FOR EMIL
--- NOTE | 2021-07-29 21:40 | NUR ---
MS RN NOTE PATIENT BROUGHT IN BY ER NURSES AT THIS TIME VIA GURNEY. A/OX2-3. NO S/S OF APPARENT DISTRESS. DENIES PAIN AT THIS TIME. L.AC #18 G INTACT AND PATENT. PATIENT WISHES TO BE FULL CODE AT THIS TIME. STATES THAT HE SMOKES 1-2 CIGARETTES PER DAY-- SMOKING CESSATION DONE WITH PATIENT BEING PASSIVE AND POOR CONCENTRATION. PATIENT ASKING FOR FOOD AT THIS TIME. NEEDS ATTENDED AT THE MOMENT. BELONGINGS CHECKED. NEW ID BAND ON PATIENT. V/S FOLLOWS: BP- 131/63. T-97.6, RR-18, HR-77, O2 99% ON ROOM AIR, WT- 112. WILL FOLLOW THROUGH MD'S ORDERS.
[2021-07-29 21:50] VITALS: BP 131/63
[2021-07-29] MEDS: IV NS 0.9% 1,000 ML IV PRN (22:00)
--- NOTE | 2021-07-29 22:02 | NUR ---
PT TRANSPORTED TO UNIT ON GURNEY WITH EMT AT BEDSIDE ON STABLE CONDITION. NAD NOTED DURING TRANSPORT
[2021-07-29] MEDS: LEVETIRACETAM (250 MG) 250 MG TABLET PO SCH (22:51)
[2021-07-29] MEDS: TRAZODONE 50 MG TABLET PO SCH (22:51)
[2021-07-29] MEDS: BACLOFEN (10 MG) 10 MG TABLET PO SCH (22:53)
[2021-07-29] MEDS: GABAPENTIN 100 MG CAPSULE PO SCH (22:53)
--- NOTE | 2021-07-29 23:00 | NUR ---
MS RN NOTE PATIENT GIVEN SANDWICH AND DRINKS. PATIENT ABLE TO TOLERATE PO INTAKE WELL. FOR FURTHER ASSESSMENT, I ASKED PATIENT IF HE KNOWS WHY HE WAS BROUGHT IN TO THE HOSPITAL. PER PATIENT "NO I DON'T." EXPLAINED TO THE PATIENT THAT HE WAS BROUGHT IN BECAUSE IN THE ASSISTED FACILITY THEY CLAIM THAT PATIENT DO NOT EAT, WHICH PER PATIENT "IS NOT TRUE". FURTHERED EXPLAINED TO THE PATIENT THAT HE WAS BROUGHT IN BECAUSE THE DOCTOR IS PLACING A TUBE ON HIS STOMACH FOR FEEDING FOR HIM BECAUSE HE IS NOT EATING WELL, WHICH PER NURSING ASSESSMENT PATIENT EATS VERY WELL WITHOUT COUGHING. DID TELL PATIENT THAT HE HAS TO SIGN A CONSENT FOR THE G-TUBE PLACEMENT BUT IF HE HAS ANY CONCERNS, THAT DOCTOR'S MAKE THERE ROUNDS IN THE MORNING AND HE COULD TELL THEM HIS CONCERNS ABOUT THE PROCEDURE. PATIENT ACKNOWLEDGES THIS. FURTHERMORE, I TALKED TO MY CHARGE NURSESAVANA ABOUT THIS DILEMMA, PER CHARGE NURSE DO NOT LET THE PATIENT SIGN THE CONSENT JUST YET BECAUSE THERE IS PLENTY TIME BEFORE THE PROCEDURE ANY WAYS, AND DR. PACK MIGHT MAKE HIS ROUNDS TOMORROW. UNSIGNED CONSENT FORMS PRINTED AND PUT IN THE CHART. WILL ENDORSE TO MORNING SHIFT RN AND CONTINUE TO MONITOR PATIENT FOR NOW.
[2021-07-29 23:45] VITALS: BP 131/63
[2021-07-30] MEDS: IBUPROFEN 400 MG TABLET PO PRN (00:54)
--- NOTE | 2021-07-30 06:26 | NUR ---
DIET CHANGED TO SOFT DIET PER PATIENT REQUEST. CHARGE NURSE AWARE.
[2021-07-30 07:22] LABS: BASOPHILS % (AUTO) 0.4 % (0.0-2.0); EOSINOPHILS % (AUTO) 2.6 % (0.0-6.0); HEMATOCRIT 27 % (39-51); HEMOGLOBIN 9.1 g/dL (13.5-17.5); LYMPHOCYTES # (AUTO) 1.6 K/uL (0.8-4.8); LYMPHOCYTES % (AUTO) 34.9 % (20.0-44.0); MEAN CORPUSCULAR HGB CONC 34 g/dl (31.0-36.0); MEAN CORPUSCULAR VOLUME 89 fL (80-96); MONOCYTES # (AUTO) 0.4 K/uL (0.1-1.30); MONOCYTES % (AUTO) 8.9 % (2.0-12.0); NEUTROPHILS # (AUTO) 2.5 K/uL (1.8-8.9); NEUTROPHILS % (AUTO) 53.2 % (43.0-81.0); PLATELET COUNT (AUTO) 253 K/uL (150-450); RED BLOOD CELL COUNT(AUTO) 3.05 MIL/uL (4.5-6.0); WHITE BLOOD COUNT (AUTO) 4.6 K/uL (4.3-11.0)
[2021-07-30 07:27] LABS: CALCIUM, SERUM 8.4 mg/dL (8.5-10.1); CREATININE 0.9 mg/dL (0.6-1.3); POTASSIUM 3.9 mmol/L (3.5-5.1)
--- NOTE | 2021-07-30 07:50 | NUR ---
RN CLOSING NOTE REPORT GIVEN TO NASRIN BILLS FOR CONTINUITY OF CARE.
--- NOTE | 2021-07-30 07:51 | NUR ---
RN OPENING NOTE- PT AWAKE IN BED, ALERT ORIENTED PERSON PLACE. CONFUSED. INTERACTIVE. MAKES NEEDS KNOWN. IS EATING AND DRINKING FLUIDS W ASSIST. VS STABLE, IVF NS AT 75/HR TO LAC, SIDE RAILS UP, BED LOCKED, CALL LIGHT AT HAND. MONITOR/ ASSIST
[2021-07-30 08:00] VITALS: BP 91/55
[2021-07-30] MEDS: BENAZEPRIL HCL 5 MG TABLET PO SCH (09:00)
[2021-07-30] MEDS: OLANZAPINE 5 MG TABLET PO SCH (09:29)
[2021-07-30] MEDS: GABAPENTIN 100 MG CAPSULE PO SCH ×2 (09:29→21:34)
[2021-07-30] MEDS: BACLOFEN (10 MG) 10 MG TABLET PO SCH ×2 (09:29→17:22)
[2021-07-30] MEDS: DOCUSATE SODIUM 250 MG CAPSULE PO SCH (09:29)
[2021-07-30 15:55] VITALS: BP 118/67
[2021-07-30 20:30] VITALS: BP 122/72
[2021-07-30] MEDS: LEVETIRACETAM (250 MG) 250 MG TABLET PO SCH (21:34)
[2021-07-30] MEDS: TRAZODONE 50 MG TABLET PO SCH (21:34)
--- NOTE | 2021-07-31 07:03 | NUR ---
MS RN CLOSING NOTES: PATIENT IS CURRENTLY IN BED SLEEPING. PATIENT HAS NO S/S OF DISTRESS. RESPIRATION EVEN AND UNLABORED WITH EQUAL RISE AND FALL OF THE CHEST, ON ROOM AIR. NO BEHAVIORAL ISSUES THIS SHIFT. ALL PATIENT CARE NEEDS HAVE BEEN MET ANTICIPATED. WILL CONTINUE TO MONITOR AND ENDORSE TO AM SHIFT.
--- NOTE | 2021-07-31 07:37 | NUR ---
RN OPENING NOTES Patient seen comfortably lying in bed, no SOB, no apparent distress noted, breathing even and unlabored, denies any pain or discomfort at this time, no grimacing. Call light left within reach, safety precautions in place, brakes locked, side rails up X 2, will monitor closely for any changes.
[2021-07-31] MEDS: OLANZAPINE 5 MG TABLET PO SCH (08:24)
[2021-07-31] MEDS: GABAPENTIN 100 MG CAPSULE PO SCH ×2 (08:25→21:01)
[2021-07-31] MEDS: DOCUSATE SODIUM 250 MG CAPSULE PO SCH (08:25)
[2021-07-31] MEDS: BACLOFEN (10 MG) 10 MG TABLET PO SCH ×2 (08:25→17:42)
[2021-07-31 08:27] VITALS: BP 102/68
[2021-07-31] MEDS: BENAZEPRIL HCL 5 MG TABLET PO SCH (08:27)
--- NOTE | 2021-07-31 10:00 | NUR ---
As per endorsement from previous shift, patient is for PEG tube placement but the procedure was cancelled since patient is eating and is even requesting to change his diet to pureed diet. Hospitalist made aware of the situation and stated that patient has a DPOA and patient came to hospital to have a PEG tube placed, and to inform welfare case worker regarding situation. data science and iot manager made aware and said that will call facility to verify that patient has DPOA, no papers regarding DPOA seen in chart, charge nurse made aware. Tried to call the contact numbers in the patient's face sheet Jamaal Olsen ([phone]), left a message and Nurys Olivo ([phone]) left a message too, will follow up.
--- NOTE | 2021-07-31 16:30 | NUR ---
Patient patient AO X 2-3, for PEG placement, and per MD he has a DPOA, tried to call the contact numbers in the patient's face sheet to get a consent for the procedure, called Jamaal Olsen ([phone]), left a message and Nurys Olivo ([phone]) left a message too, will follow up and will also endorse to incoming shift.
[2021-07-31 16:40] VITALS: BP 116/74
--- NOTE | 2021-07-31 17:00 | NUR ---
Patient for PEG placement, patient AO X 2-3, and per MD he has a DPOA, tried to call the contact numbers in the patient's face sheet to get a consent for the procedure, called Jamaal Olsen ([phone]), left a message and Nurys Olivo ([phone]) left a message too, will follow up.
[2021-07-31] MEDS: IV NS 0.9% 1,000 ML IV PRN (17:49)
--- NOTE | 2021-07-31 18:30 | NUR ---
Patient for PEG placement, and per MD he has a DPOA, tried to call the contact numbers in the patient's face sheet to get a consent for the procedure, called Jamaal Olsen ([phone]), left a message and Nurys Olivo ([phone]) left a message too, charge nurse and nurse case manager aware of the situation, will follow up and will also endorse to incoming shift.
--- NOTE | 2021-07-31 19:00 | NUR ---
RN CLOSING NOTES Patient lying in bed, AO X 2-3, able to make needs known, can follow simple commands, respirations even and unlabored, no SOB, remained afebrile during shift, no apparent distress noted, no dizziness, no palpitations noted at this time. All due medications given per MD order, tolerating well. Patient has an ongoing IV fluid for hydration with peripheral IV site gauge 18, NS at 75ml/hr infusing well, no s/s of infiltration at this time, no redness, no swelling noted. All needs attended, aspiration precaution observed at all times, kept clean and dry, safety precautions in place, frequent visual check rendered, patient repositioned frequently, brakes locked, side rails up X 2, call light left within reach, will endorse to next shift for continuity of care.
[2021-07-31 20:00] VITALS: BP 110/69
--- NOTE | 2021-07-31 20:02 | NUR ---
MS RN OPENING NOTE PATIENT RECEIVED AWAKE IN BED. A/OX2. NO S/S OF DISTRESS; BREATHING SYMMETRICALLY. LAC #18 PATENT. SAFETY MEASURES IN PLACE: BED AT LOWEST POSITION, RAILS X2, CALL VARGHESE WITHIN REACH. WILL CONTINUE TO MONITOR.
[2021-07-31] MEDS: LEVETIRACETAM (250 MG) 250 MG TABLET PO SCH (21:01)
[2021-07-31] MEDS: TRAZODONE 50 MG TABLET PO SCH (21:01)
--- NOTE | 2021-08-01 06:54 | NUR ---
MS RN CLOSING NOTES PATIENT IS ASLEEP IN BED. A/OX2. NO S/S OF DISTRESS, BREATHING SYMMETRICAL. LAC #18 INTACT AND PATENT. SAFETY MEASURES IN PLACE: BED AT LOWEST POSITION, RAILS UP X2, CALL VARGHESE WITHIN REACH. WILL ENDORSE TO NEXT SHIFT FOR EMIL.
--- NOTE | 2021-08-01 07:36 | NUR ---
RN OPENING NOTES Patient seen comfortably lying in bed, no apparent distress noted, respirations even and unlabored, no SOB, no grimacing. Call light left within reach, safety precautions in place, brakes locked, side rails up X 2, will monitor closely for any changes.
[2021-08-01] MEDS: GABAPENTIN 100 MG CAPSULE PO SCH ×2 (08:14→21:42)
[2021-08-01] MEDS: BACLOFEN (10 MG) 10 MG TABLET PO SCH ×2 (08:14→17:50)
[2021-08-01] MEDS: DOCUSATE SODIUM 250 MG CAPSULE PO SCH (08:14)
[2021-08-01] MEDS: OLANZAPINE 5 MG TABLET PO SCH (08:14)
[2021-08-01] MEDS: BENAZEPRIL HCL 5 MG TABLET PO SCH (08:15)
[2021-08-01 08:34] VITALS: BP 90/60
--- NOTE | 2021-08-01 10:00 | NUR ---
Patient for PEG placement, and per MD he has a DPOA, tried to call the contact numbers in the patient's face sheet to get a consent for the procedure, called Jamaal Olsen ([phone]), left a message. Called Nurys Olivo ([phone]) and was able to get some information regarding patient, per Nurys, she is patient's friend and a student services counselor and she works for an agency that provides home care and modern support services. Nurys stated that patient is under temporary conservatorship of [facility], she also added that she has the information of the surgical device sales representative assigned for [facility] details as follows: Naima Faustino [phone], and just in case she does not answer because it is holiday today, [facility] after hours number as follows: [phone]. Charge nurse and MD made aware of the situation, will follow up. Patient kept NPO, no apparent distress noted at this time.
--- NOTE | 2021-08-01 10:30 | NUR ---
Unable to get a hold of Naima Harmon [phone] (patient's district sales representative from [facility]), called [facility] after hours number ([phone]), was able to talk to Nurys (skiver operator), and she said she will page news operations manager for today. Charge nurse and hospitalist made aware of the situation, will follow up.
[2021-08-01] MEDS: IV NS 0.9% 1,000 ML IV PRN (12:40)
--- NOTE | 2021-08-01 12:40 | NUR ---
Called [facility] after hours number ([phone]), was able to talk to Lindsay (button cutting machine operator), and was able to talk to Maddie Ying, verified that she is the correctional facility nurse for today for [facility], explained to her the need for consents for patient's gtube placement (procedure, anesthesia, blood transfusion consents), verbalized understanding and stated thatclinical team has to review request for consent and provide recommendations, consent to be signed by coordinator or designee. Charge nurse and hospitalist made aware of the situation, will follow up.
[2021-08-01 16:01] VITALS: BP 130/79
--- NOTE | 2021-08-01 18:51 | NUR ---
RN CLOSING NOTES Patient lying in bed, AO X 2-3, no apparent distress noted at this time, breathing even and unlabored, no SOB, remained afebrile during shift. All due medications given per MD order, tolerating well. Patient is for gtube placement, with pending consents from [facility], hospitalist and charge nurse made aware, per MD okay to resume meals and ordered NPO except medications post midnight. Aspiration precaution observed at all times, all needs anticipated kept clean and dry, requent visual check rendered, safety precautions in place, patient repositioned frequently, brakes locked, side rails up X 2, call light left within reach, will endorse to next shift for continuity of care.
--- NOTE | 2021-08-01 19:31 | NUR ---
MS RN OPENING NOTE PATIENT RECEIVED AWAKE IN BED. A/OX2. NO S/S OF DISTRESS, BREATHING SYMMETRICAL. LAC #18 PATENT. SAFETY MEASURES IN PLACE: BED AT LOWEST POSITION, RAILS UP X2, CALL VARGHESE WITHIN REACH. WILL CONTINUE TO MONITOR.
[2021-08-01 21:23] VITALS: BP 121/82
[2021-08-01] MEDS: TRAZODONE 50 MG TABLET PO SCH (21:42)
[2021-08-01] MEDS: LEVETIRACETAM (250 MG) 250 MG TABLET PO SCH (21:42)
--- NOTE | 2021-08-02 06:56 | NUR ---
MS RN CLOSING NOTE PATIENT AWAKE IN BED. A/OX2. NO S/S OF DISTRESS, BREATHING SYMMETRICAL. SAFETY MEASURES IN PLACE: BED AT LOWEST POSITION, RAILS UP X2, CALL VARGHESE WITHIN REACH. WILL ENDORSE TO NEXT SHIFT FOR EMIL.
[2021-08-02 08:00] VITALS: BP 100/60
[2021-08-02] MEDS: BENAZEPRIL HCL 5 MG TABLET PO SCH (09:00)
[2021-08-02] MEDS: DOCUSATE SODIUM 250 MG CAPSULE PO SCH (09:00)
[2021-08-02] MEDS: GABAPENTIN 100 MG CAPSULE PO SCH ×2 (10:07→21:31)
[2021-08-02] MEDS: BACLOFEN (10 MG) 10 MG TABLET PO SCH ×2 (10:07→17:00)
[2021-08-02] MEDS: OLANZAPINE 5 MG TABLET PO SCH (10:08)
[2021-08-02 16:00] VITALS: BP 90/56
--- NOTE | 2021-08-02 16:24 | NUR ---
MS RN OPENING NOTES RECEIVED PATIENT IN BED, ASLEEP. PATIENT ON ROOM AIR; BREATHING EVEN AND UNLABORED. NO SOB NOTED. NO COMPLAINS OF PAIN. SAFETY PRECAUTIONS IN PLACE; BED IN LOW POSITION AND LOCKED, RAILS UP X2, CALL LIGHT WITHIN REACH. WILL CONTINUE TO MONITOR PATIENT.
--- NOTE | 2021-08-02 19:18 | NUR ---
MS RN CLOSING NOTES PATIENT REMAINS IN BED, AWAKE, A/O X2. PATIENT ON ROOM AIR; BREATHING EVEN AND UNLABORED. NO S/S OF DISTRESS NOTED. ALL NEEDS ATTENDED DURING THE DAY. CONSENTS FOR PROCEDURE OBTAINED. WILL ENDORSE TO SOFTWARE DEVELOPER MANAGER NURSE FOR EMIL.
--- NOTE | 2021-08-02 19:37 | NUR ---
MS RN OPENING NOTE RECEIVED PT AWAKE IN BED. A/OX2. PT STABLE ON ROOM AIR. NO SOB OR S/S OF RESPIRATORY DISTRESS NOTED. IV ACCESS LAC #18, INTACT AND PATENT. SAFETY PRECAUTIONS IN PLACE. BED IN LOWEST LOCKED POSITION, HOB ELEVATED, SIDE RAILS UP X3, AND CALL LIGHT AND TABLE WITHIN REACH. WILL CONTINUE WITH PLAN OF CARE.
[2021-08-02 21:10] VITALS: BP 97/50
[2021-08-02] MEDS: TRAZODONE 50 MG TABLET PO SCH (21:31)
[2021-08-02] MEDS: LEVETIRACETAM (250 MG) 250 MG TABLET PO SCH (21:31)
[2021-08-03 06:21] LABS: BASOPHILS % (AUTO) 0.4 % (0.0-2.0); EOSINOPHILS % (AUTO) 1.8 % (0.0-6.0); HEMATOCRIT 27 % (39-51); HEMOGLOBIN 9.3 g/dL (13.5-17.5); LYMPHOCYTES # (AUTO) 1.5 K/uL (0.8-4.8); LYMPHOCYTES % (AUTO) 40.2 % (20.0-44.0); MEAN CORPUSCULAR HGB CONC 34 g/dl (31.0-36.0); MEAN CORPUSCULAR VOLUME 89 fL (80-96); MONOCYTES # (AUTO) 0.4 K/uL (0.1-1.30); MONOCYTES % (AUTO) 9.9 % (2.0-12.0); NEUTROPHILS # (AUTO) 1.8 K/uL (1.8-8.9); NEUTROPHILS % (AUTO) 47.7 % (43.0-81.0); PLATELET COUNT (AUTO) 216 K/uL (150-450); RED BLOOD CELL COUNT(AUTO) 3.09 MIL/uL (4.5-6.0); WHITE BLOOD COUNT (AUTO) 3.8 K/uL (4.3-11.0)
--- NOTE | 2021-08-03 06:46 | NUR ---
MS RN CLOSING NOTE PT AWAKE IN BED. A/OX2. PT STABLE ON ROOM AIR. NO SOB OR S/S OF RESPIRATORY DISTRESS NOTED. IV ACCESS LAC #18, INTACT AND PATENT, RUNNING NS @ 75 ML/HR. ALL NEEDS MET AT THIS TIME. SAFETY PRECAUTIONS IN PLACE AT ALL TIMES. BED IN LOWEST LOCKED POSITION, HOB ELEVATED, SIDE RAILS UP X3, AND CALL LIGHT AND TABLE WITHIN REACH. WILL ENDORSE TO ONCOMING SHIFT FOR EMIL.
[2021-08-03 06:47] LABS: CALCIUM, SERUM 8.9 mg/dL (8.5-10.1); CREATININE 0.8 mg/dL (0.6-1.3); MAGNESIUM 1.7 mg/dL (1.8-2.4); PHOSPHORUS 4.5 mg/dL (2.5-4.9); POTASSIUM 3.8 mmol/L (3.5-5.1)
[2021-08-03 08:13] VITALS: BP 96/67
[2021-08-03] MEDS: DOCUSATE SODIUM 250 MG CAPSULE PO SCH (08:43)
[2021-08-03] MEDS: GABAPENTIN 100 MG CAPSULE PO SCH ×2 (08:43→21:17)
[2021-08-03] MEDS: OLANZAPINE 5 MG TABLET PO SCH (08:44)
[2021-08-03] MEDS: BACLOFEN (10 MG) 10 MG TABLET PO SCH ×2 (08:44→16:30)
[2021-08-03] MEDS: BENAZEPRIL HCL 5 MG TABLET PO SCH (08:45)
--- NOTE | 2021-08-03 08:50 | NUR ---
RN NOTES PATIENT ABLE TO SWALLOW CRUSHED MEDS W/ APPLE SAUCE AND A LITTLE BIT OF WATER AND APPLE JUICE; NO COUGHING NOR SWALLOWING ISSUE NOTED. PATIENT VERBALIZED WANTING TO EAT, WILL F/U W/ MD IF OK FOR PUREED EAT.
[2021-08-03] MEDS ORDERED: MAGNESIUM OXIDE 400 MG TABLET PO ONE (10:00)
--- NOTE | 2021-08-03 10:06 | NUR ---
RN NOTES INFORMED SALVADOR FERRIS NP, IF PATIENT IS OK FOR ST EVAL AND PUREED DIET FOR NOW PATIENT WAS ABLE TO SWALLOW CRUSHED MEDS W/ APPLE SAUCE; PER PIPE PROCESSOR, WILL CONTACT GI AND AWAIT FOR RESPONSE IF PEG PLACEMENT WILL HAPPEN TODAY.
--- NOTE | 2021-08-03 10:11 | NUR ---
RN NOTES SPOKE W/ SALVADOR FERRIS NP, REGARDING PATIENT STATUS; PER MAIN GALLEY SCULLION, HE SPOKE W/ DR. BRIAN AND WILL DO PEG PLACEMENT AT 1300 TODAY.
[2021-08-03] MEDS ORDERED: ANESTHESIA TRAY IN PYXIS 1 EA TRAY MC ONE (12:55)
--- NOTE | 2021-08-03 12:55 | NUR ---
RN NOTES PATIENT PICKED UP FOR PEG PLACEMENT PROCEDURE VIA GURNEY, ACCOMPANIED BY 2 OR NURSES.
--- NOTE | 2021-08-03 14:10 | NUR ---
RN NOTES PATIENT RETURNED FROM SURGERY, S/P PEG PLACEMENT; ABDOMINAL BINDER ON. OK TO USE PEG TUBE FOR MEDS AND START FEEDING IN AM. VS TAKEN. PATIENT AWAKE AND VERBALLY RESPONSIVE, ON ROOM AIR, SATURATING BETWEEN 95-97%, NO ACUTE DISTRESS.
--- NOTE | 2021-08-03 15:27 | NUR ---
RN NOTES SPOKE WVik NAGEL, PATIENT'S CONSERVATOR, AND MADE AWARE OF PATIENT'S PROGRESS AND PLAN OF CARE; WILL CALL AGAIN TOMORROW FOR UPDATE.
[2021-08-03 16:00] VITALS: BP 106/60
[2021-08-03] MEDS: IBUPROFEN 400 MG TABLET PO PRN (16:39)
--- NOTE | 2021-08-03 19:15 | NUR ---
RN NOTES PATIENT RESTING IN BED, AWAKE AND VERBALLY RESPONSIVE. BREATHING EVEN AND UNLABORED, TOLERATING ROOM AIR, NOT IN ACUTE DISTRESS. IV LINE INTACT AND PATENT. S/P PEG PLACEMENT, INTACT AND FLUSHES WELL, OK TO USE FOR MEDS PER MD. DIETARY CONSULT ORDERED. SAFETY MEASURES MAINTAINED. ENDORSED TO PRODUCT ACCOUNTANT RN FOR EMIL.
--- NOTE | 2021-08-03 19:15 | NUR ---
MS RN NOTES RECEIVED ON BED A/O X1-2,VERBALLY RESPONSIVE,ABLE TO VERBALIZE NEEDS,EPISODE OF CONFUSION,DIAPERED,PRESENT IVF NS AT 75ML/HR RATE,SITE PATENT LAC. S/P PEG PLACEMENT,MAY USE FOR MEDS,FALL PRECAUTION OBSERVED,BED ON LOWEST POSITION AND LOCKED,BED ALARM,SEIZURE PRECAUTION,SIDE RAILS PADDED FOR SAFETY.WILL CONTINUE TO MONITOR STATUS.
[2021-08-03 20:00] VITALS: BP_SYST 106; BP_SYST 113; BP_DIAS 69; BP_DIAS 71
[2021-08-03] MEDS: TRAZODONE 50 MG TABLET PO SCH (21:17)
[2021-08-03] MEDS: LEVETIRACETAM (250 MG) 250 MG TABLET PO SCH (21:17)
[2021-08-03] MEDS: SULFAMETH/TRIMETH 800/160 MG 1 UDTAB TABLET GT SCH (21:18)
[2021-08-04] MEDS: IBUPROFEN 400 MG TABLET PO PRN (01:04)
--- NOTE | 2021-08-04 01:04 | NUR ---
MS RN NOTES C/O ABDOMINAL PAIN,MOTRIN 600MG/ GT GIVEN.
--- NOTE | 2021-08-04 06:24 | NUR ---
MS RN NOTES ON BED,SLEEP WELL WITH MOTRIN/GT FOR ABDOMINAL PAIN,IVF INFUSING WELL ON LEFT AC SALINE LOCK,TO START WITH GT FEEDING AFTER DIETARY CONSULT.FOR D.C PLANNING BACK TO SNF.IN NO ACUTE DISTRESS.
[2021-08-04 06:51] LABS: CALCIUM, SERUM 8.1 mg/dL (8.5-10.1); CREATININE 0.8 mg/dL (0.6-1.3); MAGNESIUM 1.6 mg/dL (1.8-2.4)
--- NOTE | 2021-08-04 07:27 | NUR ---
MS RN OPENING NOTES RECEIVED Pt RESTING IN BED. A/Ox1-2. BREATHING ON ROOM AIR AND TOLERATING WELL. NO COMPLAINTS OF PAIN MADE AND NO SIGNS OF DISTRESS NOTICED. SAFETY MEASURES ARE IN PLACE, BED IS LOCKED AND IN LOWEST POSITION. SIDE RAILS UP x 3. BED SIDE TABLE AND CALL LIGHT ARE WITHIN REACH. WILL CONTINUE TO MONITOR.
[2021-08-04 08:00] VITALS: BP 93/62
[2021-08-04] MEDS: SULFAMETH/TRIMETH 800/160 MG 1 UDTAB TABLET GT SCH ×2 (08:54→21:43)
[2021-08-04] MEDS: BACLOFEN (10 MG) 10 MG TABLET PO SCH ×2 (08:54→17:49)
[2021-08-04] MEDS: DOCUSATE SODIUM 250 MG CAPSULE PO SCH (08:54)
[2021-08-04] MEDS: GABAPENTIN 100 MG CAPSULE PO SCH ×2 (08:54→21:43)
[2021-08-04] MEDS: OLANZAPINE 5 MG TABLET PO SCH (08:54)
[2021-08-04] MEDS: Magnesium 1GM/D5W 100ML PREMIX 100 ML IV SCH ×2 (10:04→11:44)
[2021-08-04] MEDS ORDERED: JEVITY 1.2 CAL 1,000 ML BOTTLE GT PRN (15:30)
[2021-08-04 16:00] VITALS: BP 107/69
[2021-08-04] MEDS: JEVITY 1.2 CAL 1,000 ML BOTTLE GT SCH (17:54)
--- NOTE | 2021-08-04 18:54 | NUR ---
MS RN CLOSING NOTES Pt IS ASLEEP IN BED AND IS EASILY AROUSABLE. Pt IS A/Ox .2 Pt IS ON ROOM AIR AND TOLERATING WELL. NO SIGNS OF RESPIRATORY DISTRESS. NO COMPLAINTS OF PAIN MADE. Pt HAS IV ACCES ON L AC WHICH IS PATENT AND INTACT. Pt HAS G TUBE FEEDING - JEVITY 1.2 AT 55mL/hr AND TOLERATING WELL AT THIS TIME. SAFETY MEASURES ARE IN PLACE: BED IS LOCKED AND IN LOWEST POSITION, SIDE RAILS UP x3. BED SDIE TABLE AND CALL LIGHT ARE WITHIN REACH. WILL ENDORSE TO ONCOMING SHIFT.
--- NOTE | 2021-08-04 19:30 | NUR ---
MS/RN OPENING NOTE RECEIVED PATIENT SLEEPING IN BED. ALERT AND ORIENTED X 1-2. ABLE TO MAKE NEEDS KNOWN. DENIES PAIN AT THIS TIME. CONTINUES ON ROOM AIR WITH NO S/SX OF RESPIRATORY DISTRESS NOTED. IV ACCESS TO LEFT AC #18G INTACT AND PATENT. CONTINUES ON IVF NS 0.9% @ 75ML/HR. GTUBE IN PLACE WITH GT SITE CLEAN, DRY AND INTACT. PATIENT STARTED ON TUBE FEED JEVITY TODAY AT 35ML/HR WITH GOAL RATE OF 55ML/HR. WILL ATTEMPT TO INCREASE RATE DEPENDING ON PATIENTS TOLERATION OF FEED. CALL LIGHT WITHIN REACH. ASPIRATION, FALL AND SAFETY PRECAUTIONS MAINTAINED. WILL CONTINUE TO MONITOR.
[2021-08-04 20:00] VITALS: BP 119/79
--- NOTE | 2021-08-04 21:00 | NUR ---
MS/RN NOTE PATIENT WITH 10ML RESIDUAL NOTED. NO S/SX OF NAUSEA, VOMITING, ASPIRATION. GT FEED JEVITY INCREASED TO 40ML/HR. WILL ASSESS PATIENT'S TOLERATION OF FEED.
[2021-08-04] MEDS: LEVETIRACETAM (250 MG) 250 MG TABLET PO SCH (21:43)
[2021-08-04] MEDS: TRAZODONE 50 MG TABLET PO SCH (21:43)
[2021-08-05] MEDS: IV NS 0.9% 1,000 ML IV PRN (00:28)
--- NOTE | 2021-08-05 06:20 | NUR ---
MS/RN CLOSING NOTE PATIENT CURRENTLY SLEEPING IN BED. ALERT AND ORIENTED X 1-2. ABLE TO MAKE NEEDS KNOWN. DENIES PAIN AT THIS TIME. CONTINUES ON ROOM AIR WITH NO S/SX OF RESPIRATORY DISTRESS NOTED. IV ACCESS TO LEFT AC #18G INTACT AND PATENT. CONTINUES ON IVF NS 0.9% @ 75ML/HR. GTUBE IN PLACE WITH GT SITE CLEAN, DRY AND INTACT. TUBE FEED JEVITY INCREASED TO 45ML/HR WITH GOAL RATE OF 55ML/HR. NO RESIDUAL NOTED AT THIS TIME. CALL LIGHT WITHIN REACH. ASPIRATION, FALL AND SAFETY PRECAUTIONS MAINTAINED. WILL ENDORSE PLAN OF CARE TO ONCOMING SHIFT.
[2021-08-05 07:55] LABS: BASOPHILS % (AUTO) 0.2 % (0.0-2.0); EOSINOPHILS % (AUTO) 2.8 % (0.0-6.0); HEMATOCRIT 27 % (39-51); HEMOGLOBIN 9.2 g/dL (13.5-17.5); LYMPHOCYTES # (AUTO) 1.4 K/uL (0.8-4.8); LYMPHOCYTES % (AUTO) 43.5 % (20.0-44.0); MEAN CORPUSCULAR HGB CONC 34 g/dl (31.0-36.0); MEAN CORPUSCULAR VOLUME 88 fL (80-96); MONOCYTES # (AUTO) 0.3 K/uL (0.1-1.30); NEUTROPHILS # (AUTO) 1.4 K/uL (1.8-8.9); NEUTROPHILS % (AUTO) 45.5 % (43.0-81.0); PLATELET COUNT (AUTO) 187 K/uL (150-450); RED BLOOD CELL COUNT(AUTO) 3.07 MIL/uL (4.5-6.0); WHITE BLOOD COUNT (AUTO) 3.1 K/uL (4.3-11.0)
[2021-08-05 08:00] VITALS: BP 89/62
[2021-08-05 08:11] LABS: CALCIUM, SERUM 8.2 mg/dL (8.5-10.1); CREATININE 0.7 mg/dL (0.6-1.3); MAGNESIUM 2.1 mg/dL (1.8-2.4); PHOSPHORUS 3.8 mg/dL (2.5-4.9)
[2021-08-05] MEDS: GABAPENTIN 100 MG CAPSULE PO SCH ×2 (10:08→22:04)
[2021-08-05] MEDS: SULFAMETH/TRIMETH 800/160 MG 1 UDTAB TABLET GT SCH ×2 (10:08→22:04)
[2021-08-05] MEDS: DOCUSATE SODIUM 250 MG CAPSULE PO SCH (10:08)
[2021-08-05] MEDS: BACLOFEN (10 MG) 10 MG TABLET PO SCH ×2 (10:08→16:55)
[2021-08-05] MEDS: OLANZAPINE 5 MG TABLET PO SCH (10:09)
--- NOTE | 2021-08-05 15:00 | NUR ---
rn patient for d/c to snf/
[2021-08-05 16:00] VITALS: BP 106/56
--- NOTE | 2021-08-05 16:00 | NUR ---
ms [facility] d/c held due to pt positive covid.
[2021-08-05] MEDS: IBUPROFEN 400 MG TABLET PO PRN (16:55)
--- NOTE | 2021-08-05 18:00 | NUR ---
ms rn patient transferred to room 204,erin connor.
--- NOTE | 2021-08-05 18:05 | NUR ---
MS RN NOTE RECEIVED PATIENT TRANSPORTED VIA BED. ALERT AND ORIENTED X 2. ABLE TO MAKE NEEDS KNOWN. DENIES PAIN AT THIS TIME. ON ROOM AIR WITH NO S/SX OF RESPIRATORY DISTRESS NOTED. IV ACCESS TO LEFT AC #18G INTACT AND PATENT. WITH G-TUBE IN PLACE WITH GTUBE FEED JEVITY INCREASED TO 55ML/HR, TOLERATED WELL. NO RESIDUAL NOTED AT THIS TIME. CALL LIGHT WITHIN REACH. ASPIRATION, FALL AND SAFETY PRECAUTIONS MAINTAINED. WILLCONTINUE TO MONITOR PATIENT.
--- NOTE | 2021-08-05 19:00 | NUR ---
MS RN NOTE PATIENT IN BED. ALERT AND ORIENTED X 2. ABLE TO MAKE NEEDS KNOWN. DENIES PAIN AT THIS TIME. ON ROOM AIR WITH NO S/SX OF RESPIRATORY DISTRESS NOTED. IV ACCESS TO LEFT AC #18G INTACT AND PATENT. WITH G-TUBE IN PLACE WITH GTUBE FEED JEVITY INCREASED TO 55ML/HR, TOLERATED WELL. NO RESIDUAL NOTED AT THIS TIME. CALL LIGHT WITHIN REACH. ASPIRATION, FALL AND SAFETY PRECAUTIONS MAINTAINED. WILL ENDORSE PATIENT FOR CONTINUITY OF CARE.
[2021-08-05 20:00] VITALS: BP 116/87
[2021-08-05] MEDS: TRAZODONE 50 MG TABLET PO SCH (22:04)
[2021-08-05] MEDS: LEVETIRACETAM (250 MG) 250 MG TABLET PO SCH (22:04)
[2021-08-06] MEDS: IV NS 0.9% 1,000 ML IV PRN ×2 (00:31→15:46)
--- NOTE | 2021-08-06 07:30 | NUR ---
MS SANJU OPENING NOTES RECEIVED PATIENT ON BED RESTING AND A/O X2. ON ROOM AIR TOLERATING WELL. NO SOB NOTED. NOT IN DISTRESS. WITH NO COMPLAINTS OF PAIN OR DISCOMFORT AT THIS TIME. WITH IV ACCESS AT LEFT AC G18 WITH IVF NS AT 75ML/HR INFUSING WELL. WITH G-TUBE IN PLACED WITH JEVITY AT 55ML/HR TOLERATING WELL. SAFETY MEASURES IN PLACED. CALL LIGHT WITHIN REACH. BED ON LOWEST LOCKED POSITION, SIDE RAILS UP X2. WILL CONTINUE TO MONITOR. Addendum: 08/06/21 at 1941 by LITA REYNA RN ERROR
[2021-08-06 08:00] VITALS: BP 96/58
[2021-08-06] MEDS: BACLOFEN (10 MG) 10 MG TABLET PO SCH ×2 (08:17→16:07)
[2021-08-06] MEDS: GABAPENTIN 100 MG CAPSULE PO SCH ×2 (08:17→21:36)
[2021-08-06] MEDS: OLANZAPINE 5 MG TABLET PO SCH (08:17)
[2021-08-06] MEDS: SULFAMETH/TRIMETH 800/160 MG 1 UDTAB TABLET GT SCH ×2 (08:17→21:36)
[2021-08-06] MEDS: DOCUSATE SODIUM 250 MG CAPSULE PO SCH ×2 (09:00→16:23)
[2021-08-06] MEDS: JEVITY 1.2 CAL 1,000 ML BOTTLE GT SCH (12:25)
[2021-08-06 16:00] VITALS: BP 113/61
[2021-08-06] MEDS: IBUPROFEN 400 MG TABLET PO PRN (19:03)
--- NOTE | 2021-08-06 19:30 | NUR ---
MS RN CLOSING NOTES PATIENT ON BED RESTING AND A/O X2. ON ROOM AIR TOLERATING WELL. NO SOB NOTED. NOT IN DISTRESS. WITH NO COMPLAINTS OF PAIN OR DISCOMFORT AT THIS TIME. WITH IV ACCESS AT LEFT AC G18 WITH IVF NS AT 75ML/HR INFUSING WELL. WITH G-TUBE IN PLACED WITH JEVITY AT 55ML/HR TOLERATING WELL. DUE MEDS GIVEN. SAFETY MEASURES IN PLACED. CALL LIGHT WITHIN REACH. BED ON LOWEST LOCKED POSITION, SIDE RAILS UP X2. WILL ENDORSE TO NEXT SHIFT FOR EMIL.
--- NOTE | 2021-08-06 19:30 | NUR ---
RN opening notes Pt is resting in bed comfortably. Pt is alert and orientedX2. Respiration is on room air. NO SOB. No S/S of distress noted. LAC# 18 is clean. intact and infuising well NS@ 75 ml/hr. Gtube feeding is running jevity @ 55ml/hr with 0 residual. Safety precautions is maintained. Bed at low position, brakes locked, side rails upX3, hob elevated and call light is within reach. Will continue to monitor.
[2021-08-06 20:00] VITALS: BP 108/69
[2021-08-06] MEDS: LEVETIRACETAM (250 MG) 250 MG TABLET PO SCH (21:36)
[2021-08-06] MEDS: TRAZODONE 50 MG TABLET PO SCH (21:36)
[2021-08-07] MEDS: IV NS 0.9% 1,000 ML IV PRN ×2 (01:28→15:23)
--- NOTE | 2021-08-07 01:48 | NUR ---
RN notes Collected Covid PCR specimen and send to lab.
[2021-08-07 04:00] VITALS: BP 110/69
[2021-08-07] MEDS: JEVITY 1.2 CAL 1,000 ML BOTTLE GT SCH (05:00)
--- NOTE | 2021-08-07 06:40 | NUR ---
RN closing notes Pt is resting in bed comfortably. Pt is alert and orientedX2-3. Respiration is normal on room air. NO SOB. No S/S of distress noted. LAC# 18 is clean. intact and infuising well NS@ 75 ml/hr. Gtube feeding is running jevity @ 55ml/hr with 0 residual. Routine meds were given as ordered. Kept Pt clean, dry and comfortable. All needs met and attended. Safety precautions is maintained. Bed at low position, brakes locked, side rails upX3, hob elevated and call light is within reach. Will endorse to am nurse for EMIL.
[2021-08-07 07:04] LABS: BASOPHILS % (AUTO) 0.3 % (0.0-2.0); EOSINOPHILS % (AUTO) 4.4 % (0.0-6.0); HEMATOCRIT 26 % (39-51); HEMOGLOBIN 8.7 g/dL (13.5-17.5); LYMPHOCYTES # (AUTO) 1.3 K/uL (0.8-4.8); LYMPHOCYTES % (AUTO) 49.3 % (20.0-44.0); MEAN CORPUSCULAR HGB CONC 34 g/dl (31.0-36.0); MEAN CORPUSCULAR VOLUME 89 fL (80-96); MONOCYTES # (AUTO) 0.2 K/uL (0.1-1.30); MONOCYTES % (AUTO) 9.6 % (2.0-12.0); NEUTROPHILS # (AUTO) 0.9 K/uL (1.8-8.9); NEUTROPHILS % (AUTO) 36.4 % (43.0-81.0); PLATELET COUNT (AUTO) 220 K/uL (150-450); RED BLOOD CELL COUNT(AUTO) 2.91 MIL/uL (4.5-6.0); WHITE BLOOD COUNT (AUTO) 2.6 K/uL (4.3-11.0)
--- NOTE | 2021-08-07 07:09 | NUR ---
MS RN OPENING NOTES RECEIVED PATIENT ON BED RESTING AND A/O X2. ON ROOM AIR TOLERATING WELL. NO SOB NOTED. NOT IN ANY FORM OF ACUTE DISTRESS NOTED. WITH NO COMPLAINTS OF PAIN OR DISCOMFORT AT THIS TIME. WITH IV ACCESS AT LEFT AC G18 WITH IVF NS AT 75ML/HR INFUSING WELL. WITH G-TUBE IN PLACED ONGOING JEVITY AT 55ML/HR TOLERATING WELL. SAFETY MEASURES IN PLACED. CALL LIGHT WITHIN REACH. BED ON LOWEST LOCKED POSITION, SIDE RAILS UP X2. WILL CONTINUE TO MONITOR ACCORDINGLY.
[2021-08-07 07:24] LABS: CALCIUM, SERUM 8.2 mg/dL (8.5-10.1); CREATININE 0.8 mg/dL (0.6-1.3); MAGNESIUM 1.9 mg/dL (1.8-2.4); PHOSPHORUS 4.7 mg/dL (2.5-4.9); POTASSIUM 4.5 mmol/L (3.5-5.1)
[2021-08-07 08:00] VITALS: BP 102/58
[2021-08-07] MEDS: OLANZAPINE 5 MG TABLET PO SCH (08:21)
[2021-08-07] MEDS: GABAPENTIN 100 MG CAPSULE PO SCH ×2 (08:21→21:04)
[2021-08-07] MEDS: SULFAMETH/TRIMETH 800/160 MG 1 UDTAB TABLET GT SCH ×2 (08:21→21:03)
[2021-08-07] MEDS: DOCUSATE SODIUM 250 MG CAPSULE PO SCH (08:21)
[2021-08-07] MEDS: BACLOFEN (10 MG) 10 MG TABLET PO SCH ×2 (08:21→16:21)
--- NOTE | 2021-08-07 18:27 | NUR ---
MS RN CLOSING NOTES PATIENT ON BED RESTING AND A/O X2. ON ROOM AIR TOLERATING WELL. NO SOB NOTED. NOT IN ANY FORM OF ACUTE DISTRESS NOTED. WITH NO COMPLAINTS OF PAIN OR DISCOMFORT AT THIS TIME. WITH IV ACCESS AT LEFT AC G18 WITH IVF NS AT 75ML/HR INFUSING WELL. WITH G-TUBE IN PLACED ONGOING JEVITY AT 55ML/HR TOLERATING WELL, NO RESIDUAL NOTED. SAFETY MEASURES IN PLACED. CALL LIGHT WITHIN REACH. BED ON LOWEST LOCKED POSITION, SIDE RAILS UP X2. ALL NEEDS ATTENDED AND MET. DUE MEDS GIVEN ORDERED. WILL ENDORSE TO ONCOMING SHIFT FOR EMIL.
--- NOTE | 2021-08-07 19:25 | NUR ---
MS RN OPENING NOTES RECEIVED PATIENT LAYING AWAKE IN BED. A/O X 2-3 PATIENT WITH REGULAR AND UNLABORED BREATHING ON ROOM AIR , TOLERATED WELL. NO SIGNS AND SYMPTOMS OF DISTRESS NOTED AT THIS TIME. NO COMPLAINS OF PAIN OR DISCOMFORT AT THIS TIME. IV ACCESS LAC G #18 RUNNING NS @ 75 ML/HR. IV ACCESS PATENT AND INTACT. SAFETY PRECAUTIONS ENFORCED WITH BED LOCKED AND AT LOWEST POSITION. CALL LIGHT WITHIN REACH AT ALL TIMES. WILL CONTINUE TO MONITOR PATIENT.
[2021-08-07 20:00] VITALS: BP 110/67
[2021-08-07] MEDS: TRAZODONE 50 MG TABLET PO SCH (21:04)
[2021-08-07] MEDS: LEVETIRACETAM (250 MG) 250 MG TABLET PO SCH (21:04)
[2021-08-08] MEDS: JEVITY 1.2 CAL 1,000 ML BOTTLE GT SCH (02:58)
[2021-08-08] MEDS: IV NS 0.9% 1,000 ML IV PRN (04:24)
--- NOTE | 2021-08-08 06:48 | NUR ---
MS RN CLOSING NOTES PATIENT STILL LAYING AWAKE IN BED. A/O X 2-3 PATIENT WITH REGULAR AND UNLABORED BREATHING ON ROOM AIR , TOLERATED WELL. NO SIGNS AND SYMPTOMS OF DISTRESS NOTED AT THIS TIME. NO COMPLAINS OF PAIN OR DISCOMFORT AT THIS TIME. IV ACCESS LAC G #18 RUNNING NS @ 75 ML/HR. IV ACCESS PATENT AND INTACT. SAFETY PRECAUTIONS ENFORCED WITH BED LOCKED AND AT LOWEST POSITION. CALL LIGHT WITHIN REACH AT ALL TIMES. WILL ENDORSE CONTINUITY OF CARE TO DAY SHIFT NURSE.
--- NOTE | 2021-08-08 07:39 | NUR ---
MS RN OPENING NOTES RECEIVED PATIENT IN BED, AWAKE. PATIENT ON ROOM AIR; BREATHING EVEN AND UNLABORED, NO SOB NOTED. IV ACCESS AT LAC G # 18 RUNNING NS @ 75 MLS/HR. NO S/S OF PAIN. G-TUBE WITH JEVITY RUNNING AT 55 MLS/HR. SAFETY PRECAUTIONS IN PLACE; BED IN LOW POSITION AND LOCKED, RAILS UP X2, CHRISTINE LIGHT WITHIN REACH. WILL CONTINUE TO MONITOR PATIENT.
[2021-08-08] MEDS: BACLOFEN (10 MG) 10 MG TABLET PO SCH (08:03)
[2021-08-08] MEDS: SULFAMETH/TRIMETH 800/160 MG 1 UDTAB TABLET GT SCH (08:03)
[2021-08-08] MEDS: OLANZAPINE 5 MG TABLET PO SCH (08:03)
[2021-08-08] MEDS: GABAPENTIN 100 MG CAPSULE PO SCH (08:03)
[2021-08-08] MEDS: DOCUSATE SODIUM 250 MG CAPSULE PO SCH (08:03)
[2021-08-08 08:37] VITALS: BP 98/48
--- NOTE | 2021-08-08 09:24 | NUR ---
WOUND CARE CONSULT: REVIEWED CHART,NURSING DOCUMENTATION AND PHOTOS WHICH INDICATE SCARRING TO LEFT SHOULDER AND KNEE AND STAGE 3 ULCER TO SACRUM, PRESENT ON ADMISSION. DR LAMAR CALLED FOR SURGICAL CONSULT. RECOMMENDATIONS MADE FOR SKIN PROTECTION. DISCUSSED WITH NURSING STAFF. MD IN AGREEMENT WITH PLAN OF CARE.
--- NOTE | 2021-08-08 15:28 | NUR ---
MS SIMULATION SOFTWARE ENGINEER NOTES PATIENT DISCHARGED BACK TO FACILITY (SNF) IN MEDICALLY STABLE CONDITION. ALL DISCHARGE PAPERWORK READY AND SIGNED BY 2 RNs; PATIENT IS NOT ABLE TO SIGN. BELONGINGS ACCOUNTED FOR (UPPER DENTURE) AND SIGNED BY 2 RNs WELL. FACILITY CALLED AND REPORT GIVEN. IV ACCESS REMAINED IN PLACE PER FACILITY TO CONTINUE IV ANTIBIOTICS. PATIENT PICKED UP BY 2 telegraphic typewriter operator VIA GURNEY AND LEFT THE UNIT AT [phone].
== END 2021-08-08 15:33 | DRG 640 ==
LOC: ER 13:12 → MEDSG1 21:26 → MED 21:39 → MEDSG2 08-05 21:16
PROVIDERS: ADMIT Internal Medicine; ATTEND Registered Nurse
PROC: 0DH63UZ Insertion of Feeding Device into Stomach, Percutaneous Approach (ICD-10-PCS; principal; 2021-08-03)
DX: R62.7 Adult failure to thrive (principal); L89.153 Pressure ulcer of sacral region, stage 3; G93.41 Metabolic encephalopathy; E43 Unspecified severe protein-calorie malnutrition; U07.1 COVID-19; J12.82 Pneumonia due to coronavirus disease 2019; J44.0 Chronic obstructive pulmonary disease with (acute) lower respiratory infection; N39.0 Urinary tract infection, site not specified; Z16.12 Extended spectrum beta lactamase (ESBL) resistance; I25.10 Atherosclerotic heart disease of native coronary artery without angina pectoris; G40.909 Epilepsy, unspecified, not intractable, without status epilepticus; K29.70 Gastritis, unspecified, without bleeding; M48.00 Spinal stenosis, site unspecified; Z95.1 Presence of aortocoronary bypass graft; Z79.82 Long term (current) use of aspirin; Z79.899 Other long term (current) drug therapy; G89.4 Chronic pain syndrome; D64.9 Anemia, unspecified; E78.5 Hyperlipidemia, unspecified; B96.20 Unspecified Escherichia coli [E. coli] as the cause of diseases classified elsewhere; R13.10 Dysphagia, unspecified; I10 Essential (primary) hypertension; Z74.09 Other reduced mobility; M62.469 Contracture of muscle, unspecified lower leg
CPT/HCPCS: 36415; 43246; 71045-TC; 80048-TC; 80076-TC; 81001; 82962-TC; 83690-TC; 83735-TC; 84100-TC; 85025-TC; 85610-TC; 86850-TC; 87081-TC; 87086-TC; 87186-TC; C9803; G0378; J0690; J2704; J3475; J3490; J7030; U0003

== ENCOUNTER 2021-09-20 07:00 | Emergency (ER) | payer MEDICARE, OTHER ==
[~2021-09-20] VITALS: Ht 167.6 cm; Wt 54.4 kg
[~2021-09-20 07:00] MED LIST changes: -VANC1VIA34 XX
--- NOTE | 2021-09-20 07:05 | NUR ---
BIBAMBULANCE FROM SNF, FOR GTUBE REPLACEMENT. OLD GTUBE GOT DISLODGED AT 3A. PATIENT IS BEDBOUND WITH A NOTED SACRAL PRESSURE SORE STAGE 3. PATIENT IN BED 11 ON MONITOR AND POX.
--- NOTE | 2021-09-20 07:10 | NUR ---
Fr 16 G TUBE INSERTED, ORDERED FOR KUB
[2021-09-20] MEDS ORDERED: DIATR MEGLU/DIATRIZOATE SODIUM 30 ML BOTTLE (GASTROGRAPHIN) ONE (07:27)
[2021-09-20] MEDS ORDERED: DIATR MEGLU/DIATRIZOATE SODIUM 30 ML BOTTLE (GASTROGRAPHIN) PO ONE (07:30)
--- NOTE | 2021-09-20 10:05 | NUR ---
CALLED [facility] AND SET UP BLS TRANSPORT TO [facility] ETA 1100
--- NOTE | 2021-09-20 11:04 | NUR ---
SPOKE WITH OCTAVIA FROM [facility], REPORT WAS GIVEN AND THEY ARE AWARE PT WILL BE TRANSPORTED BACK TO HIS FACILITY.
--- NOTE | 2021-09-20 11:29 | NUR ---
TRANSPORTATION ARRIVED, REPORT GIVEN. PT BEING TRASNPORT BACK TO FACILITY ([facility]) IN STABLE CONDITION. DISCHARGE PAPERWORK GIVEN TO TRSNPORTATION TO GIVE TO FACILITY.
[2021-09-20 11:30] VITALS: BP 108/74
== END 2021-09-20 11:31 ==
LOC: ER 07:09
DX: K94.23 Gastrostomy malfunction (principal); I10 Essential (primary) hypertension; J44.9 Chronic obstructive pulmonary disease, unspecified; Z98.890 Other specified postprocedural states; Z79.899 Other long term (current) drug therapy; Z79.82 Long term (current) use of aspirin
CPT/HCPCS: 43762; 74018; 99284; Q9963 ×2